=== PATIENT | female | born 1940 | race Caucasian/White ===

== ENCOUNTER 2017-02-09 15:23 | Inpatient (IN) | payer OTHER ==
[~2017-02-09] VITALS: Ht 162.6 cm; Wt 75.0 kg
[2017-02-09] MEDS ORDERED: ALUMINUM/MAGNESIUM SUSP 30 ML UDC PO STA (15:43)
[2017-02-09] MEDS ORDERED: BIOT1CAP4 PO (15:49)
[2017-02-09 15:52] LABS: BASO % 0.2 %; BASO ABS # 0.01 K/uL (0-0.2); COMPLETE YES; EOS % 0.9 %; HEMATOCRIT 36.9 % (37-47); IG% 0.3 %; LYMPH % 29.4 %; LYMPH ABS # 1.87 K/uL (1.2-3.4); MEAN CELL VOLUME 85.6 fL (80-100); MEAN CORPUSCULAR HEMOGLOBIN 28.3 pg (25-34); MEAN CORPUSCULAR HGB CONC 33.1 g/dl (32-36); MONO % 11.1 %; NEUT % 58.1 %; PLATELET COUNT 249 K/uL (130-400); RED BLOOD COUNT 4.31 M/uL (4.2-5.4); WHITE BLOOD COUNT 6.37 K/uL (4.8-10.8)
--- NOTE | 2017-02-09 15:59 | DIAGNOSTIC IMAGING REPORT ---
SINGLE VIEW CHEST CLINICAL HISTORY: Atypical chest pain. FINDINGS: An AP, portable, upright chest radiograph is obtained. No prior studies are available for comparison at the time of dictation. The examination is degraded by portable technique, motion artifact, and patient rotation. The cardiomediastinal silhouette is unremarkable. There is mild elevation of the right hemidiaphragm with associated right basilar atelectasis. No airspace consolidation or large pleural effusion is identified. No pneumothorax is seen. The skeletal structures are osteopenic. The bony thorax is grossly intact. IMPRESSION: No acute cardiopulmonary abnormality is seen. Electronically signed by: David Schroeder M.D. 02/09/2017 3:58 PM Dictated Date/Time: 02/09/2017 3:56 PM
--- NOTE | 2017-02-09 16:03 | EMERGENCY ROOM VISIT NOTE ---
History Report prepared by Greyson: Kan Bahena Under the Supervision of: Dr. Dagmar Gaspar D.O. First contact with patient: 15:29 Chief Complaint: CHEST PAIN Stated Complaint: CHEST PAIN/ARM NUMBNESS History of Present Illness The patient is a 76 year old female who presents to the Emergency Room with complaints of constant chest pressure beginning three days ago. The patient states three days ago she developed severe chest heaviness, and a severe headache. She reports that her headache has been resolved, and it feels like her chest pressure is going away. The patient notes that she gets short of breath when her chest pressure is present, and exertion increases her shortness of breath. She states that her pressure radiates intermittently to her left arm. The patient reports that it is not as bad as before, and she can still do things with her arm. She notes that lying down intensifies her pain. The patient states that she has been experiencing increased fatigue for the past month. She reports that he has not seen her PCP for her symptoms. The patient notes that two of her brothers, one of her sisters, and her mother of heart disease. She states that she is not currently taking medication. The patient reports that she has a history of GERD, but she has never had these symptoms before. She denies neck pain, back pain, fevers, chills, cough, cold, dizziness, lightheaded, smoking, edema to legs, trouble with her bowel movements , urinary symptoms, blurry vision, double vision, and recent travel. Source of History: patient Onset: three days ago Position: chest Quality: pressure Timing: constant Associated Symptoms: + SOB, + fatigue, No fevers, No chills, No cough, No neck pain, No back pain, No urinary symptoms Note: Associated symptoms: left arm pressure Denies: cold, dizziness, lightheaded, smoking, edema to legs, trouble with her bowel movements, blurry vision, double vision, and recent travel Review of Systems See HPI for pertinent positives & negatives. A total of 10 systems reviewed and were otherwise negative. Past Medical & Surgical Medical Problems: (1) GERD (gastroesophageal reflux disease) Family History Heart disease Social History Smoking Status: Never Smoker Marital Status: single Occupation Status: retired Current/Historical Medications Scheduled Biotin (Biotin), 2,500 MCG PO BID Allergies Coded Allergies: No Known Allergies (Unverified , 02/09/17) Physical Exam Vital Signs Date Time Temp Pulse Resp B/P (MAP) Pulse Ox O2 Delivery O2 Flow Rate FiO2 02/09/17 17:05 75 18 175/89 97 Room Air 02/09/17 16:38 74 18 161/92 95 Room Air 02/09/17 16:06 75 02/09/17 15:25 36.8 86 18 175/69 96 Room Air Physical Exam GENERAL: alert, uncomfortable appearing, well nourished, no distress, non-toxic , mildly diaphoretic. EYE EXAM: normal conjunctiva, PERRL and EOM's grossly intact OROPHARYNX: no exudate, no erythema, lips, buccal mucosa, and tongue normal and mucous membranes are moist NECK: supple, no nuchal rigidity, no adenopathy, non-tender LUNGS: Clear to auscultation. Normal chest wall mechanics. No reproducible chest wall tenderness. HEART: no murmurs, S1 normal and S2 normal ABDOMEN: abdomen soft, non-tender, normo-active bowel sounds, no masses, no rebound or guarding. BACK: Back is symmetrical on inspection and there is no deformity, no midline tenderness, no CVA tenderness. SKIN: no rashes and no bruising UPPER EXTREMITIES: upper extremities are grossly normal. LOWER EXTREMITIES: No pitting edema. NEURO EXAM: Normal sensorium, cranial nerves II-XII grossly intact, normal speech, no gross weakness of arms, no gross weakness of legs. Medical Decision & Procedures ER Provider Diagnostic Interpretation: Radiology results have been interpreted by the radiologist and reviewed by me. SINGLE VIEW CHEST CLINICAL HISTORY: Atypical chest pain. FINDINGS: An AP, portable, upright chest radiograph is obtained. No prior studies are available for comparison at the time of dictation. The examination is degraded by portable technique, motion artifact, and patient rotation. The cardiomediastinal silhouette is unremarkable. There is mild elevation of the right hemidiaphragm with associated right basilar atelectasis. No airspace consolidation or large pleural effusion is identified. No pneumothorax is seen. The skeletal structures are osteopenic. The bony thorax is grossly intact. IMPRESSION: No acute cardiopulmonary abnormality is seen. Electronically signed by: David Schroeder M.D. 02/09/2017 3:58 PM Dictated Date/Time: 02/09/2017 3:56 PM Laboratory Results Test 02/09/17 15:45 Prothrombin Time 9.8 SECONDS (9.0-12.0) Prothromb Time International Ratio 0.9 (0.9-1.1) Total Bilirubin 0.4 mg/dl (0.2-1) Aspartate Amino Transf (AST/SGOT) 27 U/L (15-37) Alanine Aminotransferase (ALT/SGPT) 24 U/L (12-78) Alkaline Phosphatase 81 U/L (45-117) Pro-B-Type Natriuretic Peptide 2221 pg/ml (0-900) Total Protein 7.2 gm/dl (6.4-8.2) Albumin 3.7 gm/dl (3.4-5.0) Globulin 3.5 gm/dl (2.5-4.0) Albumin/Globulin Ratio 1.1 (0.9-2) Laboratory results per my review. Medications Administered Medications (Trade) Dose Ordered Sig/Clifford Route Start Time Stop Time Status Last Admin Dose Admin Al Hydroxide/Mg Hydroxide (Maalox Susp) 30 ml NOW STAT PO 02/09/17 15:43 02/09/17 15:44 DC 02/09/17 15:52 30 ML Nitroglycerin (Nitroglycerin 2% Oint) 1 inch NOW ONCE EXT 02/09/17 16:30 02/09/17 16:31 DC 02/09/17 16:40 1 INCH Aspirin/Aluminum/ Magnesium/Ca Carb (Ascriptin Tab) 325 mg NOW STAT PO 02/09/17 16:29 02/09/17 16:30 DC 02/09/17 17:05 325 MG Heparin Sodium/ Dextrose 1 ea NOW STAT N/A 02/09/17 16:38 02/09/17 16:39 DC 02/09/17 16:56 1 EA Heparin Sodium (Porcine) (Heparin Sq 5000 Unit/0.5ml) 5,000 unit STK-MED ONCE .ROUTE 02/09/17 16:49 02/09/17 16:51 DC 02/09/17 16:55 5,000 UNIT Heparin Sodium/ Dextrose (Heparin 25,000 Unit/500ml D5W) 25,000 unit STK-MED ONCE .ROUTE 02/09/17 16:49 02/09/17 16:51 DC 02/09/17 16:56 25,000 UNIT ECG Indication: chest pain (pressure) Rate (beats per minute): 78 Rhythm: sinus rhythm Findings: no acute ischemic change, no ectopy, other (Normal axis and interval , low voltage) ED Course 1536: The patient was evaluated in room A11B. A complete history and physical exam was performed. 1543: Ordered Maalox Susp 30ml PO 1624: Upon reevaluation, the patient is resting. I discussed the findings and the treatment plan with the patient, especially her elevated troponin. She expresses agreement and understanding. 1629: Ordered Ascription Tab 325mg PO 1630: Ordered Nitroglycerin 1 inch EXT 1633: I spoke with Dr. Gupta of the [facility] Hospitalist Service. The patient will be evaluated for further management. 1638: Ordered Heparin Sodium/Dextrose 1ea N/A 1649: Ordered Heparin Sodium/Dextrose 66228 unit .ROUTE, Heparin Sodium (Porcine ) 5000 unit .ROUTE 1738: I reevaluated the patient, and she is no longer experiencing pain or pressure. She is waiting to go upstairs. Medical Decision Differential diagnoses includes but is not limited to acute coronary syndrome, myocardial infarction, pericarditis, pulmonary embolus, aortic dissection, pneumonia, pneumothorax, musculoskeletal, shingles, esophageal. Pt with sx concerning for ACS, and despite reporting improvement on arrival here , pt with risk factors and family hx and found to have elevated troponin. Pt given asa, nitro, heparin and discussed with hospitalist for additional evaluation. Doubt over CHF, doubt elevated trop due to BENJIE/CKD, doubt infectious etiology. No STEMI on EKG, likely NSTEMI. Doubt dissection, pe, tamponade, effusion. VS stable otherwise. Chest pressure resolved with nitro paste. Medication Reconcilliation Current Medication List: was personally reviewed by me Blood Pressure Screening Patient's blood pressure: Elevated blood pressure Monitored by hospitalist Consults Time Called: 162 Consulting Physician: Dr. Gupta, [facility] Hospitalist Returned Call: [address] Gupta of the [facility] Hospitalist Service. The patient will be evaluated for further management. Impression Primary Impression: NSTEMI (non-ST elevated myocardial infarction) Additional Impressions: Chest pain Elevated brain natriuretic peptide (BNP) level Renal insufficiency Critical Care I have personally spent 35 minutes of critical care time in the direct management of this patient. This includes bedside care, interpretation of diagnostic studies, and testing, discussion with consultants, patient, and family members, and other required patient management activities. This 35 minutes is in excess of all separately billable procedures. Scribe Attestation The scribe's documentation has been prepared under my direction and personally reviewed by me in its entirety. I confirm that the note above accurately reflects all work, treatment, procedures, and medical decision making performed by me. Departure Information Dispostion Being Evaluated By Hospitalist Referrals No Doctor, Assigned (PCP) Patient Instructions My [facility] Problem Qualifiers Additional Impressions: Chest pain Chest pain type: unspecified Qualified Codes: R07.9 - Chest pain, unspecified
[2017-02-09 16:06] LABS: INR 0.9 (0.9-1.1); PROTHROMBIN TIME (PATIENT) 9.8 SECONDS (9.0-12.0)
[2017-02-09 16:08] LABS: BUN/CREATININE RATIO 19.3 (10-20); CALCIUM 9.4 mg/dl (8.5-10.1); CREATININE 1.3 mg/dl (0.60-1.20); POTASSIUM 3.9 mmol/L (3.5-5.1)
[2017-02-09 16:20] LABS: ALB/GLOB RATIO 1.1 (0.9-2)
[2017-02-09] MEDS ORDERED: ASPIRIN/ALUM/MAGNES/CAL CARB 325 MG TAB PO STA (16:29)
[2017-02-09] MEDS ORDERED: NITROGLYCERIN OINT 2% 1GM PACKET EXT ONE (16:30)
[2017-02-09] MEDS ORDERED: HEPARIN 25000 UNIT/500 ML D5W ONE (16:49)
[2017-02-09] MEDS ORDERED: HEPARIN SOD 5000 UNIT/0.5 ML CARP ONE (16:49)
[2017-02-09] MEDS ORDERED: ONDANSETRON INJ 2 MG/ML 2 ML VIAL IV PRN (17:15)
[2017-02-09] MEDS ORDERED: MAGNESIUM HYDROXIDE SUSP 30 ML UDC PO PRN (17:15)
[2017-02-09] MEDS ORDERED: NITROGLYCERIN 0.4 MG SL PER TAB CHARGE SL PRN (17:15)
[2017-02-09] MEDS ORDERED: POLYETHYLENE (MIRALAX) 17 GM PACK PO PRN (17:15)
[2017-02-09] MEDS ORDERED: ALUMINUM/MAGNESIUM/SIMETH (MAALOX MAX) 30 ML UDC PO PRN (17:15)
[2017-02-09] MEDS ORDERED: ACETAMINOPHEN 325 MG TAB PO PRN (17:15)
[2017-02-09] MEDS ORDERED: MoRPHine SULFATE 2 MG/ML CARP IV PRN (17:15)
--- NOTE | 2017-02-09 17:33 | History and Physical ---
History & Physical Date & Time of Service: Feb 09, 2017 at 17:14 Chief Complaint: Chest Pain/Arm Numbness Primary Care Physician: No Doctor, Assigned History of Present Illness Source: patient, clinic records, hospital records This is a 76 y/o female with a history of GERD and cataracts who presented to the ED on 02/09 with chest pain. The patient states that she first developed severe 10/10 chest pressure in the middle of her chest about 3 days ago. She denies any associated shortness of breath, dizziness, lightheadedness, nausea or vomiting. The chest pain became less and less severe over the last few days , and the patient currently rates her pain a 1/10. The patient denies any recent increase in activity and states that exertion does not make the pain worse. She did not take anything at home for the pain. She states that it the pain was worse when laying down, and she has been sleeping upright. The patient does have associated intermittent numbness/tingling going down her left arm, which prompted her to be evaluated in the ED. The patient denies any numbness currently. The patient denies any significant past medical history and states she does not take any medications. She had a normal stress test about 15 years ago. She denies any previous cardiac caths. She does admit to a strong cardiac family history. The patient denies fevers, chills, sweats, palpitations, claudication, cough, wheezing, shortness of breath, nausea, vomiting, abdominal pain, dysuria, hematuria, urinary retention, paralysis, and weakness. Past Medical/Surgical History Medical Problems: (1) GERD (gastroesophageal reflux disease) Status: Chronic Cataracts Family History Coronary artery disease Heart disease Myocardial infarction Social History Smoking Status: Never Smoker Smokeless Tobacco Use: No Alcohol Use: none Drug Use: none Marital Status: single Housing status: lives with family (with son) Occupational Status: retired Multi-Drug Resistant Organisms History of MDRO: No Allergies Coded Allergies: No Known Allergies (Unverified , 02/09/17) Home Medications Scheduled Biotin (Biotin), 2,500 MCG PO BID Review of Systems Constitutional: No fever, No chills, No sweats Eyes: No worsening of vision, No eye pain, No diplopia ENT: No hearing loss, No sore throat, No trouble swallowing Respiratory: No cough, No wheezing, No shortness of breath, No dyspnea on exertion Cardiovascular: + chest pain, No claudication, No palpitations Abdomen: No pain, No nausea, No vomiting Musculoskeletal: No joint pain, No muscle pain, No swelling Genitourinary - Female: No dysuria, No urinary retention, No hematuria Neurologic: + numbness/tingling (intermittent left arm), No paralysis, No weakness Integumentary: No rash, No itch, No color change Physical Exam Vital Signs Date Time Temp Pulse Resp B/P (MAP) Pulse Ox O2 Delivery O2 Flow Rate FiO2 02/09/17 17:05 75 18 175/89 97 Room Air 02/09/17 16:38 74 18 161/92 95 Room Air 02/09/17 16:06 75 02/09/17 15:25 36.8 86 18 175/69 96 Room Air General appearance: Well-developed, well-nourished, no apparent distress Head: Normocephalic, atraumatic Eyes: Normal inspection, PERRL, EOMI ENT: Normal ENT inspection, hearing grossly normal, pharynx normal Neck: Supple, no JVD, trachea midline Respiratory/Chest: +Middle of chest TTP. Lungs clear to auscultation, normal breath sounds, no respiratory distress Cardiovascular: Regular rate & rhythm, no gallop, no murmur Abdomen/GI: Normal bowel sounds, non-tender, soft Extremities/Musculoskeletal: Normal inspection, no calf tenderness, no pedal edema Neurological/Psych: Alert, normal mood/affect, oriented x 3 Skin: Normal color, warm/dry, no rash Diagnostics Laboratory Results Results Past 24 Hours Test 02/09/17 15:45 Range/Units White Blood Count 6.37 4.8-10.8 K/uL Red Blood Count 4.31 4.2-5.4 M/uL Hemoglobin 12.2 12.0-16.0 g/dL Hematocrit 36.9 37-47 % Mean Corpuscular Volume 85.6 80-100 fL Mean Corpuscular Hemoglobin 28.3 25-34 pg Mean Corpuscular Hemoglobin Concent 33.1 32-36 g/dl Platelet Count 249 130-400 K/uL Mean Platelet Volume 10.0 7.4-10.4 fL Neutrophils (%) (Auto) 58.1 % Lymphocytes (%) (Auto) 29.4 % Monocytes (%) (Auto) 11.1 % Eosinophils (%) (Auto) 0.9 % Basophils (%) (Auto) 0.2 % Neutrophils # (Auto) 3.70 1.4-6.5 K/uL Lymphocytes # (Auto) 1.87 1.2-3.4 K/uL Monocytes # (Auto) 0.71 0.11-0.59 K/uL Eosinophils # (Auto) 0.06 0-0.5 K/uL Basophils # (Auto) 0.01 0-0.2 K/uL RDW Standard Deviation 42.6 36.4-46.3 fL RDW Coefficient of Variation 13.6 11.5-14.5 % Immature Granulocyte % (Auto) 0.3 % Immature Granulocyte # (Auto) 0.02 0.00-0.02 K/uL Prothrombin Time 9.8 9.0-12.0 SECONDS Prothromb Time International Ratio 0.9 0.9-1.1 Activated Partial Thromboplast Time 25.8 21.0-31.0 SECONDS Partial Thromboplastin Ratio 1.0 Sodium Level 141 136-145 mmol/L Potassium Level 3.9 3.5-5.1 mmol/L Chloride Level 108 98-107 mmol/L Carbon Dioxide Level 27 21-32 mmol/L Anion Gap 6.0 3-11 mmol/L Blood Urea Nitrogen 25 7-18 mg/dl Creatinine 1.30 0.60-1.20 mg/dl Est Creatinine Clear Calc Drug Dose 36.6 ml/min Estimated GFR () 46.5 Estimated GFR (Non- 40.1 BUN/Creatinine Ratio 19.3 10-20 Random Glucose 102 70-99 mg/dl Calcium Level 9.4 8.5-10.1 mg/dl Total Bilirubin 0.4 0.2-1 mg/dl Aspartate Amino Transf (AST/SGOT) 27 15-37 U/L Alanine Aminotransferase (ALT/SGPT) 24 12-78 U/L Alkaline Phosphatase 81 45-117 U/L Troponin I 2.010 0-0.045 ng/ml Pro-B-Type Natriuretic Peptide 2221 0-900 pg/ml Total Protein 7.2 6.4-8.2 gm/dl Albumin 3.7 3.4-5.0 gm/dl Globulin 3.5 2.5-4.0 gm/dl Albumin/Globulin Ratio 1.1 0.9-2 Diagnostic Radiology Reviewed the following studies and agree with interpretation as follows: Patient Name: JILLIAN ANGELA Unit Number: [id number] Dictated: 02/09/171555 Transcribed: 02/09/171555 EV Printed Date/Time: [~ rep prt dt]/[~ rep prt tm] [~ rep ct labl] - [~ rep ct ivnm] [facility] [place] [address] Dictated: 02/09/171555 Transcribed: 02/09/171555 EV Printed Date/Time: [~ rep prt dt]/[~ rep prt tm] [~ rep ct labl] - [~ rep ct ivnm] Patient: JILLIAN ANGELA Address1: [facility] [address] [facility] Rec: [id number] Address2: Acct ID: [id number] [facility] Zip: [place] [address] Date: 1940 Sex: F Room/Bed: Ref Phy: No Doctor, Assigned SC: CHENG Att Phy: Report #: [id number] Marissa Phy: No Doctor, Assigned Test: CXR1P Admit Phy: Chemic Mangler: DAYANNA Interpreting Phy: David Schroeder M.D. Diagnosis: CHEST PAIN/ARM NUMBNESS Ordering Phy: Dagmar Gaspar DO Service Date: 02/09/17 Admit Date: 02/09/17 MNE: [id number] CONF: DICTATED BY: David Schroeder M.D.]] CC: No Doctor, Assigned Dagmar Gaspar DO Endcc: [~ rep ct add3]] SINGLE VIEW CHEST CLINICAL HISTORY: Atypical chest pain. FINDINGS: An AP, portable, upright chest radiograph is obtained. No prior studies are available for comparison at the time of dictation. The examination is degraded by portable technique, motion artifact, and patient rotation. The cardiomediastinal silhouette is unremarkable. There is mild elevation of the right hemidiaphragm with associated right basilar atelectasis. No airspace consolidation or large pleural effusion is identified. No pneumothorax is seen. The skeletal structures are osteopenic. The bony thorax is grossly intact. IMPRESSION: No acute cardiopulmonary abnormality is seen. Electronically signed by: David Schroeder M.D. 02/09/2017 3:58 PM Dictated Date/Time: 02/09/2017 3:56 PM The status of this report is Signed. Draft = Not yet reviewed or approved by Radiologist. Signed = Reviewed and approved by Radiologist. <AttendingPhy></AttendingPhy> <FamilyPhy>No Doctor, Assigned</FamilyPhy> < PrimaryPhy>No Doctor, Assigned</PrimaryPhy> <UnitNumber>[id number]</UnitNumber> <VisitNumber>[id number]</VisitNumber> <PatientName>JILLIAN ANGELA</PatientName > <DateOfBirth>1940</DateOfBirth> <Location>[facility]</Location> <ServiceDate> 02/09/17</ServiceDate> <MNE>ESINDI</MNE> <OrderingPhy>Phedanni Dagmar S DO</ OrderingPhy> <OrderingPhyMNE>f rep ord dr torres</OrderingPhyMNE> <DictatingPhyMNE> f rep dict dr torres</DictatingPhyMNE> <CCListMNE>f rep ct mne</CCListMNE> < AdmittingPhyMNE>f pt admit dr torres</AdmittingPhyMNE> <AttendingPhyMNE>f pt attend dr torres</AttendingPhyMNE> <ConsultingPhyMNE>f pt consult dr torres</ConsultingPhyMNE> <FamilyPhyMNE>f pt fam dr torres</FamilyPhyMNE> <OtherPhyMNE>f pt other dr torres</OtherPhyMNE> < PrimaryPhyMNE>f pt prim care dr torres</PrimaryPhyMNE> <ReferringPhyMNE>f pt referring dr torres</ReferringPhyMNE> EKG Reviewed EKG and agree with interpretation as follows: 78 bpm, sinus rhythm with PACs Impression Assessment and Plan 76 y/o female with a history of GERD and cataracts who presented to the ED on with chest pain x 3 days. Pt arrived to ED afebrile, VSS. Troponin elevated at 2.01. EKG shows no ST elevations or ischemic changes. CXR shows no acute disease. Pt received ASA 325 mg and nitro paste in ED, and was started on heparin drip standard with bolus. NSTEMI -Admit to telemetry -Cardiology consulted, appreciate recs -Continue heparin drip -ASA 81 mg PO qd -Atorvastatin 80 mg PO qd -Nitro 0.4 mg SL prn chest pain -Morphine 2 mg q30m prn CP -Trend cardiac enzymes q8h x 2 more sets or until troponin peaks -NPO after midnight for possible cardiac cath or stress echo -Lipid panel and HgbA1c tomorrow morning -EKG q am and prn worsening chest pain BENJIE -Creatinine 1.3 on admission. Unknown baseline, but last creatinine in hospital records was 0.94 in 2013 -NSS at 100 cc/hr -Continue to monitor GI prophylaxis -Maalox Max 15 mL PO q4h prn dyspepsia -Milk of magnesia 30 mL PO q6h prn constipation -Miralax 17 gm PO qd prn constipation -Zofran 4 mg IV q6h prn nausea DVT prophylaxis -Heparin drip -ZAN nick and SCDs Code Status -Level V, DO NOT RESUSCITATE I agree with PA assessment and plan and have seen and examined pt myself Resting comfortably in bed VSS labs reviewed chest pain reproducible on palpation trop elevated, cont to trend EKG NSR will like need ECHO Strong fam hx of coronary disease Cardiology consulted Level of Care Telemetry Resuscitation Status DO NOT RESUSCITATE VTE Prophylaxis VTE Risk Assessment Done? Y/N: Yes Risk Level: Moderate Given or contraindicated: Other Anticoagulation (heparin drip), T.E.D. Stockings, SCD's
[2017-02-09 18:05] VITALS: BP 146/96; PULSE 73; TEMP 37; Ht 162.6 cm; Wt 75.0 kg
[2017-02-09] MEDS: SODIUM CHLORIDE 0.9% 1000ML 1,000 ML IV SCH (18:22)
[2017-02-09] MEDS ORDERED: HEPARIN 25,000 UNIT/500ML D5W 500 ML IV PRN (18:45)
[2017-02-09 20:00] VITALS: BP 143/78; PULSE 77; TEMP 36.7; O2SAT 93
[2017-02-09 20:01] VITALS: O2SAT 93
[2017-02-09 23:45] LABS: PARTIAL THROMBOPLASTIN RATIO 3.3
[2017-02-10] VITALS (17 sets, daily range): BP systolic 107–156; BP diastolic 64–98; PULSE 65–82; TEMP 36.3–37.1; O2SAT 92–98
[2017-02-10 00:52] LABS: CKMB/CK RATIO 4.1 (0-3.0)
[2017-02-10] MEDS: SODIUM CHLORIDE 0.9% 1000ML 1,000 ML IV SCH (04:01)
[2017-02-10 06:44] LABS: HEMATOCRIT 33.8 % (37-47); MEAN CELL VOLUME 85.4 fL (80-100); MEAN CORPUSCULAR HGB CONC 32.8 g/dl (32-36); PLATELET COUNT 202 K/uL (130-400); RED BLOOD COUNT 3.96 M/uL (4.2-5.4); WHITE BLOOD COUNT 6.61 K/uL (4.8-10.8)
[2017-02-10 07:08] LABS: ESTIMATED AVERAGE GLUCOSE 120 mg/dl; HA1C FLAG Normal (Normal)
[2017-02-10 07:11] LABS: PARTIAL THROMBOPLASTIN RATIO 2.5
[2017-02-10 07:22] LABS: BUN/CREATININE RATIO 20.6 (10-20); CALCIUM 8.2 mg/dl (8.5-10.1); CREATININE 1.1 mg/dl (0.60-1.20); POTASSIUM 4.4 mmol/L (3.5-5.1)
[2017-02-10 07:25] LABS: CHOLESTEROL/HDL RATIO 3.9
[2017-02-10 08:50] LABS: CKMB/CK RATIO 3.2 (0-3.0)
[2017-02-10] MEDS ORDERED: ASPIRIN 81 MG ECTAB PO SCH (09:00)
--- NOTE | 2017-02-10 09:00 | ECHOCARDIOGRAM REPORT ---
*NOTICE TO RECEIVING REPUBLICAN AGENCY This information is strictly Confidential and protected under [place] law. [place] law prohibits you from making any further disclosure of this information unless further disclosure is expressly permitted by the written consent of the person to whom it pertains or is authorized by law. A general authorization for the release of medical or other information is not sufficient for this purpose. Hospital accepts no responsibility if the information is made available to any other person, INCLUDING THE PATIENT. Interpretation Summary * Name: JILLIAN ANGELA Study Date: 02/10/2017 06:33 AM BP: 107/64 mmHg * Patient Location: C.2T\S\S230\S\2 HR: 69 * : 1940 (M/d/yyyy) Gender: Female Height: 64 in * Age: 76 yrs Ethnicity: [place] Weight: 160 lb * Ordering Physician: Bonny Beasley * Referring Physician: Self, Referred * Performed By: Alba Hernandez [facility] * * Reason For Study: CHEST PAIN * BSA: 1.8 m2 * -- Conclusions -- * Left ventricular systolic function is normal. * Grade I diastolic dysfunction, (abnormal relaxation pattern). * Right ventricular systolic pressure is elevated at 30-40mmHg. Procedure Details * A complete two-dimensional transthoracic echocardiogram was performed (2D, M-mode, Doppler and color flow Doppler). Left Ventricle * The left ventricle is normal in size. * The basal septum is thickened and angulated consistent with sigmoid septum. * There is normal left ventricular wall thickness. * Left ventricular systolic function is normal. * Grade I diastolic dysfunction, (abnormal relaxation pattern). * Ejection Fraction = 55-60%. * The left ventricular wall motion is normal. Right Ventricle * The right ventricle is normal in size and function. Atria * The left atrial size is normal. * Right atrial size is normal. Mitral Valve * The mitral valve is normal in structure and function. * There is no mitral regurgitation noted. Tricuspid Valve * The tricuspid valve anatomy is normal. * There is mild tricuspid regurgitation. * Right ventricular systolic pressure is elevated at 30-40mmHg. Aortic Valve * The aortic valve is normal in structure and function. * The aortic valve is trileaflet. * No hemodynamically significant valvular aortic stenosis. * Trace aortic regurgitation. Great Vessels * The aortic root is normal size. Pericardium/Pleural * There is no pericardial effusion. MMode 2D Measurements and Calculations IVSd 1.1 cm IVSs 1.7 cm LVIDd 4.0 cm LVIDs 2.7 cm LVPWd 1.3 cm LVPWs 1.5 cm IVS/LVPW 0.85 FS 31.0 % EDV(Teich) 68.6 ml ESV(Teich) 28.0 ml EF(Teich) 59.2 % EDV(cubed) 62.4 ml ESV(cubed) 20.5 ml EF(cubed) 67.1 % % IVS thick 57.5 % % LVPW thick 19.4 % LV mass(C)d 159.6 grams LV mass(C)dI 89.7 grams/m\S\2 LV mass(C)s 160.7 grams LV mass(C)sI 90.3 grams/m\S\2 SV(Teich) 40.6 ml SI(Teich) 22.8 ml/m\S\2 SV(cubed) 41.9 ml SI(cubed) 23.5 ml/m\S\2 Ao root diam 2.7 cm Ao root area 5.9 cm\S\2 ACS 1.9 cm LA dimension 3.2 cm LA/Ao 1.2 LVOT diam 2.0 cm LVOT area 3.0 cm\S\2 LVAd ap2 22.3 cm\S\2 LVLd ap2 6.8 cm EDV(MOD-sp2) 59.5 ml EDV(sp2-el) 62.2 ml LVAs ap2 12.8 cm\S\2 LVLs ap2 5.4 cm ESV(MOD-sp2) 25.1 ml ESV(sp2-el) 25.9 ml EF(MOD-sp2) 57.8 % EF(sp2-el) 58.4 % SV(MOD-sp2) 34.4 ml SI(MOD-sp2) 19.3 ml/m\S\2 SV(sp2-el) 36.4 ml SI(sp2-el) 20.4 ml/m\S\2 Doppler Measurements and Calculations MV E max lois 80.9 cm/sec MV A max lois 106.2 cm/sec MV E/A 0.76 MV P1/2t max lois 98.4 cm/sec MV P1/2t 73.2 msec MVA(P1/2t) 3.0 cm\S\2 MV dec slope 393.8 cm/sec\S\2 MV dec time 0.27 sec Ao V2 max 123.6 cm/sec Ao max PG 6.1 mmHg Ao max PG (full) 2.9 mmHg JUDE(V,A) 2.2 cm\S\2 JUDE(V,D) 2.2 cm\S\2 AI max lois 460.2 cm/sec AI max PG 84.7 mmHg AI dec slope 192.1 cm/sec\S\2 AI P1/2t 701.7 msec LV V1 max PG 3.2 mmHg LV V1 max 89.5 cm/sec PA V2 max 87.1 cm/sec PA max PG 3.0 mmHg PI max lois 181.2 cm/sec PI max PG 13.1 mmHg PI dec slope 147.2 cm/sec\S\2 PI P1/2t 360.5 msec TR max lois 273.5 cm/sec
--- NOTE | 2017-02-10 09:56 | Cardiology Consultation ---
Cardiology Consultation Date of Consultation: Feb 10, 2017. Requesting Physician: Dr. Mitchell Attending Physician: Dr. Valdez Reason for Consultation: Chest pain with elevated troponins Pt evaluation today including: conversation w/ patient, physical exam, chart review, lab review History of Present Illness Ms. Alcazar is a 76y/o with hx of GERD and cataracts who presented to the ED on with improving chest pain that started on 02/07 with elevated troponin. Pt reports doing housework when the pain started. Pain was severe, in the middle of her chest, described as pressure-like and associated with pressure like headache and L arm numbness/tingling. Pain did not last the entire day and improved. She did not pass out or have sob. Pt talked to [id number] yesterday who is a nurse and encouraged her to go to the ED instead of waiting for an appointment with a clam shucker even though her symptoms had improved. 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 Pt's work does not involve the use of stairs. She sleeps with one pillow at night and does not wake up short of breath. However, pt does report leg tiredness but not cramping and sob when walking especially when she walks fast. Pt also has extensive family history of heart disease: brother got a stent 3 months ago and mother from a heart attack. ED course: Chest x-ray and EKG obtained. She was given nitro paste and aspirin 325 This AM: She denies having any chest pain, sob, L arm numbness/tingling, n/v, abd pain, or dizziness. Only reports a mild headache (states perhaps from her sinuses since cold air is blowing on her face in the room). Past Medical/Surgical History (1) GERD (gastroesophageal reflux disease) cataracts Family History Coronary artery disease Heart disease Myocardial infarction Social History Smoking Status: Never Smoker History of Alcohol Use: No Review of Systems Constitutional: No fever, No chills Respiratory: No shortness of breath Cardiac: No chest pain, No orthopnea, No PND, No edema Abdomen: No pain, No nausea, No vomiting Neurologic: No numbness/tingling Allergies Coded Allergies: No Known Allergies (Unverified , 02/09/17) Medications Current Inpatient Medications Medications (Trade) Dose Ordered Sig/Clifford Route Start Time Stop Time Status Last Admin Dose Admin Sodium Chloride 1,000 ml @ 100 mls/hr Q10H IV 02/09/17 18:00 03/11/17 17:59 02/10/17 04:01 100 MLS/HR Acetaminophen (Tylenol Tab) 650 mg Q4H PRN PO 02/09/17 17:15 03/11/17 17:14 Al Hydrox/Mg Hydrox/Simethicone (Maalox Max Susp) 15 ml Q4H PRN PO 02/09/17 17:15 03/11/17 17:14 Magnesium Hydroxide (Milk Of Magnesia Susp) 30 ml Q12H PRN PO 02/09/17 17:15 03/11/17 17:14 Ondansetron HCl (Zofran Inj) 4 mg Q6H PRN IV 02/09/17 17:15 03/11/17 17:14 Nitroglycerin (Nitrostat Tab) 0.4 mg UD PRN SL 02/09/17 17:15 03/11/17 17:14 Morphine Sulfate (MoRPHine SULFATE INJ) 2 mg Q30M PRN IV 02/09/17 17:15 02/23/17 17:14 Aspirin (Ecotrin Tab) 81 mg QAM PO 02/10/17 09:00 03/12/17 08:59 Polyethylene (Miralax Powder Packet) 17 gm DAILY PRN PO 02/09/17 17:15 03/11/17 17:14 Atorvastatin Calcium (Lipitor Tab) 80 mg QAM PO 02/10/17 09:00 03/12/17 08:59 Heparin Sodium/ Dextrose 500 ml @ 20 mls/hr Q24H PRN IV 02/09/17 18:45 03/11/17 18:44 02/10/17 00:30 20 MLS/HR Physical Exam Vital Signs Past 12 Hours Date Time Temp Pulse Resp B/P (MAP) Pulse Ox O2 Delivery O2 Flow Rate FiO2 02/10/17 07:47 36.8 69 16 130/72 (91) 92 Room Air 02/10/17 04:00 37.1 69 17 107/64 (78) 93 Room Air 02/10/17 04:00 Room Air 02/10/17 00:09 37.1 68 17 151/79 (103) 95 Room Air 02/10/17 00:00 Room Air Lungs: Respiratory effort: no dyspnea, good air movement Auscultation: breath sounds normal Cardiovascular: Heart Auscultation: RRR, normal S1, normal S2, no murmurs Peripheral Pulses: Radial Pulse: normal on the right Extremities: no edema Neurologic: Cranial Nerves: grossly intact Sensation: grossly intact Data Laboratory Results: Last 24 Hours Test 02/09/17 15:45 02/09/17 23:04 02/10/17 00:09 02/10/17 06:29 White Blood Count 6.37 K/uL 6.61 K/uL Red Blood Count 4.31 M/uL 3.96 M/uL Hemoglobin 12.2 g/dL 11.1 g/dL Hematocrit 36.9 % 33.8 % Mean Corpuscular Volume 85.6 fL 85.4 fL Mean Corpuscular Hemoglobin 28.3 pg 28.0 pg Mean Corpuscular Hemoglobin Concent 33.1 g/dl 32.8 g/dl Platelet Count 249 K/uL 202 K/uL Mean Platelet Volume 10.0 fL 10.0 fL Neutrophils (%) (Auto) 58.1 % Lymphocytes (%) (Auto) 29.4 % Monocytes (%) (Auto) 11.1 % Eosinophils (%) (Auto) 0.9 % Basophils (%) (Auto) 0.2 % Neutrophils # (Auto) 3.70 K/uL Lymphocytes # (Auto) 1.87 K/uL Monocytes # (Auto) 0.71 K/uL Eosinophils # (Auto) 0.06 K/uL Basophils # (Auto) 0.01 K/uL RDW Standard Deviation 42.6 fL 42.4 fL RDW Coefficient of Variation 13.6 % 13.6 % Immature Granulocyte % (Auto) 0.3 % Immature Granulocyte # (Auto) 0.02 K/uL Prothrombin Time 9.8 SECONDS Prothromb Time International Ratio 0.9 Activated Partial Thromboplast Time 25.8 SECONDS 85.0 SECONDS 65.5 SECONDS Partial Thromboplastin Ratio 1.0 3.3 2.5 Sodium Level 141 mmol/L 141 mmol/L Potassium Level 3.9 mmol/L 4.4 mmol/L Chloride Level 108 mmol/L 109 mmol/L Carbon Dioxide Level 27 mmol/L 26 mmol/L Anion Gap 6.0 mmol/L 6.0 mmol/L Blood Urea Nitrogen 25 mg/dl 23 mg/dl Creatinine 1.30 mg/dl 1.10 mg/dl Est Creatinine Clear Calc Drug Dose 36.6 ml/min 43.6 ml/min Estimated GFR () 46.5 56.9 Estimated GFR (Non- 40.1 49.1 BUN/Creatinine Ratio 19.3 20.6 Random Glucose 102 mg/dl 98 mg/dl Calcium Level 9.4 mg/dl 8.2 mg/dl Total Bilirubin 0.4 mg/dl Aspartate Amino Transf (AST/SGOT) 27 U/L Alanine Aminotransferase (ALT/SGPT) 24 U/L Alkaline Phosphatase 81 U/L Troponin I 2.010 ng/ml 1.970 ng/ml Pro-B-Type Natriuretic Peptide 2221 pg/ml Total Protein 7.2 gm/dl Albumin 3.7 gm/dl Globulin 3.5 gm/dl Albumin/Globulin Ratio 1.1 Total Creatine Kinase 104 U/L Creatine Kinase MB 4.3 ng/ml Creatine Kinase MB Ratio 4.1 Estimated Average Glucose 120 mg/dl Hemoglobin A1c 5.8 % Triglycerides Level 92 mg/dl Cholesterol Level 130 mg/dl HDL Cholesterol 33 mg/dl LDL Cholesterol, Calculated 79 mg/dl VLDL Cholesterol, Calculated 18 mg/dl Cholesterol/HDL Ratio 3.9 Test 02/10/17 07:58 Total Creatine Kinase 84 U/L Creatine Kinase MB 2.7 ng/ml Creatine Kinase MB Ratio 3.2 Troponin I 1.460 ng/ml Imaging: Chest x-ray revealed mildly elevated right hemidiaphragm without acute cardiopulmonary disease EKG: Normal sinus rhythm without evidence of old infarct or significant ST or T -wave changes Telemetry reviewed: Normal sinus rhythm Assessment & Plan Ms. Alcazar is a 76y/o with hx of GERD and cataracts who presented to the ED on with improving chest pain that started on 02/07 with elevated troponin. Given elevated and now downtrending troponins, it is likely that she had an ischemic myocardial injury from her chest pain on Wednesday which would need to be further evaluated with a cardiac catheterization to assess for CAD/unstable plagues to prevent further ischemic events. -CXR: no significant findings -EKG: sinus arrhythmia with no ST elevation or evidence of old infarcts -ECHO: nl LV systolic function, grade I diastolic dysfunction and elevated RV pressure at 30-40mmHg -Troponins elevated at 2.01 at presentation and now downtrending (1.970 -->1.460 ) -CKMD elevated at 4.3 (02/09) -->2.7 (02/10) with normal CK of 104 and 84 -ProBNP elevated at 2221 -Normal metabolic parameters and Cr of 1.1 Discussed with patient risks/benefits of doing a cardiac catheterization and pt consented to cath this AM with Dr. Cabrales. Attending note: Patient is a 76-year-old woman without known coronary disease who experienced an episode of severe chest discomfort associated with a headache several days ago. This also involve some symptoms of the left arm. The symptoms somewhat prolonged in duration but eventually resolved without intervention. She has not had significant recurrence of the symptoms. She generally does not have exertional symptoms. She cannot recall having similar symptoms in the past. When curious symptoms involved worsening of the chest discomfort when lying supine. Objective findings include normal LV systolic function and a normal EKG. She does however have elevations in her cardiac biomarkers. Troponins are elevated with normal CKs. This may be more client care representative of an event that happened several days ago. Competing etiologies would be some form of pericarditis or myocarditis given the positional nature of her symptoms. We discussed several options for evaluation, but based on her description of symptoms and the elevated biomarkers would seem reasonable to proceed with an early invasive strategy. I did describe the risks benefits and alternatives of coronary angiography to the patient. She is familiar with the procedure as several relatives have undergone similar studies and interventions. She signed witnessed consent form of plan on proceeding later today. I have stopped her heparin. Renal function is normal. - Resident Involvement: Resident Care Provided Care Provided: Adult [facility]
--- NOTE | 2017-02-10 10:45 | Hospitalist Progress Note ---
Hospitalist Progress Note Date of Service Feb 10, 2017. (Zulema Sarah CRNP) Subjective Pt evaluation today including: conversation w/ patient, physical exam, chart review, lab review, review of studies, review of inpatient medication list Pain: none Voiding: no voiding problems Ms. Alcazar is symptom free this morning. She is to be taken for a heart catheterization today. Respiratory: No cough, No sputum, No shortness of breath, No dyspnea on exertion Cardiovascular: No chest pain, No edema, No palpitations Abdomen: No pain, No nausea, No vomiting, No diarrhea, No constipation All Other Systems: Reviewed and Negative (Zulema Sarah CRNP) Medications Medications (Trade) Dose Ordered Sig/Clifford Route Start Time Stop Time Status Last Admin Dose Admin Al Hydroxide/Mg Hydroxide (Maalox Susp) 30 ml NOW STAT PO 02/09/17 15:43 02/09/17 15:44 DC 02/09/17 15:52 30 ML Nitroglycerin (Nitroglycerin 2% Oint) 1 inch NOW ONCE EXT 02/09/17 16:30 02/09/17 16:31 DC 02/09/17 16:40 1 INCH Aspirin/Aluminum/ Magnesium/Ca Carb (Ascriptin Tab) 325 mg NOW STAT PO 02/09/17 16:29 02/09/17 16:30 DC 02/09/17 17:05 325 MG Heparin Sodium/ Dextrose 1 ea NOW STAT N/A 02/09/17 16:38 02/09/17 16:39 DC 02/09/17 16:56 1 EA Heparin Sodium (Porcine) (Heparin Sq 5000 Unit/0.5ml) 5,000 unit STK-MED ONCE .ROUTE 02/09/17 16:49 02/09/17 16:51 DC 02/09/17 16:55 5,000 UNIT Heparin Sodium/ Dextrose (Heparin 25,000 Unit/500ml D5W) 25,000 unit STK-MED ONCE .ROUTE 02/09/17 16:49 02/09/17 16:51 DC 02/09/17 16:56 25,000 UNIT Sodium Chloride 1,000 ml @ 100 mls/hr Q10H IV 02/09/17 18:00 03/11/17 17:59 02/10/17 04:01 100 MLS/HR Heparin Sodium/ Dextrose 1 ea Q30M N/A 02/09/17 17:42 02/09/17 18:31 DC 02/09/17 17:42 1 EA Heparin Sodium/ Dextrose 500 ml @ 20 mls/hr Q24H PRN IV 02/09/17 18:45 02/10/17 09:39 DC 02/10/17 00:30 20 MLS/HR Heparin Sodium (Porcine) (Heparin Iv Bolus) 10,000 unit STK-MED ONCE .ROUTE 02/10/17 12:38 02/10/17 12:39 DC 02/10/17 12:38 10,000 UNIT Fentanyl Citrate (Fentanyl Inj) 100 mcg STK-MED ONCE .ROUTE 02/10/17 12:38 02/10/17 12:39 DC 02/10/17 12:38 75 MCG Midazolam HCl (Versed Inj) 2 mg STK-MED ONCE .ROUTE 02/10/17 12:38 02/10/17 12:39 DC 02/10/17 12:38 2 MG Eptifibatide (Integrilin Inj) 40 mg STK-MED ONCE IV 02/10/17 13:25 02/10/17 13:26 DC 02/10/17 13:25 40 MG Eptifibatide (Integrilin Inj) 75 mg STK-MED ONCE IV 02/10/17 13:25 02/10/17 13:26 DC 02/10/17 13:25 75 MG Midazolam HCl (Versed Inj) 2 mg STK-MED ONCE .ROUTE 02/10/17 14:03 02/10/17 14:04 DC 02/10/17 14:03 2 MG (Zulema Sarah, SAUL) Objective Vital Signs Date Time Temp Pulse Resp B/P (MAP) Pulse Ox O2 Delivery O2 Flow Rate FiO2 02/10/17 07:47 36.8 69 16 130/72 (91) 92 Room Air 02/10/17 04:00 37.1 69 17 107/64 (78) 93 Room Air 02/10/17 04:00 Room Air 02/10/17 00:09 37.1 68 17 151/79 (103) 95 Room Air 02/10/17 00:00 Room Air 02/09/17 20:01 93 Room Air 02/09/17 20:00 36.7 77 16 143/78 (99) 93 02/09/17 18:05 37.0 73 18 146/96 Room Air 02/09/17 17:30 71 18 168/96 96 Room Air 02/09/17 17:05 75 18 175/89 97 Room Air 02/09/17 16:38 74 18 161/92 95 Room Air 02/09/17 16:06 75 02/09/17 15:25 36.8 86 18 175/69 96 Room Air (Zulema Sarah CRNP) Physical Exam General Appearance: WD/WN, no apparent distress Eyes: normal inspection Respiratory/Chest: chest non-tender, lungs clear, + crackles (faint, bilateral bases) Cardiovascular: regular rate, rhythm, no edema, no gallop, no murmur Abdomen: normal bowel sounds, non tender, soft Neurologic/Psychiatric: alert, normal mood/affect, oriented x 3 Skin: normal color, warm/dry (Zulema Sarah, SAUL) Laboratory Results 02/10/17 06:29 02/10/17 06:29 Test 02/09/17 15:45 02/10/17 06:29 02/10/17 07:58 Immature Granulocyte % (Auto) 0.3 % White Blood Count 6.37 K/uL (4.8-10.8) Red Blood Count 4.31 M/uL (4.2-5.4) 3.96 M/uL (4.2-5.4) Hemoglobin 12.2 g/dL (12.0-16.0) Hematocrit 36.9 % (37-47) Mean Corpuscular Volume 85.6 fL (80-100) 85.4 fL (80-100) Mean Corpuscular Hemoglobin 28.3 pg (25-34) 28.0 pg (25-34) Mean Corpuscular Hemoglobin Concent 33.1 g/dl (32-36) 32.8 g/dl (32-36) Platelet Count 249 K/uL (130-400) Mean Platelet Volume 10.0 fL (7.4-10.4) 10.0 fL (7.4-10.4) Neutrophils (%) (Auto) 58.1 % Lymphocytes (%) (Auto) 29.4 % Monocytes (%) (Auto) 11.1 % Eosinophils (%) (Auto) 0.9 % Basophils (%) (Auto) 0.2 % Neutrophils # (Auto) 3.70 K/uL (1.4-6.5) Lymphocytes # (Auto) 1.87 K/uL (1.2-3.4) Monocytes # (Auto) 0.71 K/uL (0.11-0.59) Eosinophils # (Auto) 0.06 K/uL (0-0.5) Basophils # (Auto) 0.01 K/uL (0-0.2) Immature Granulocyte # (Auto) 0.02 K/uL (0.00-0.02) Prothrombin Time 9.8 SECONDS (9.0-12.0) Prothromb Time International Ratio 0.9 (0.9-1.1) Total Bilirubin 0.4 mg/dl (0.2-1) Aspartate Amino Transf (AST/SGOT) 27 U/L (15-37) Alanine Aminotransferase (ALT/SGPT) 24 U/L (12-78) Alkaline Phosphatase 81 U/L (45-117) Pro-B-Type Natriuretic Peptide 2221 pg/ml (0-900) Total Protein 7.2 gm/dl (6.4-8.2) Albumin 3.7 gm/dl (3.4-5.0) Globulin 3.5 gm/dl (2.5-4.0) Albumin/Globulin Ratio 1.1 (0.9-2) RDW Standard Deviation 42.4 fL (36.4-46.3) RDW Coefficient of Variation 13.6 % (11.5-14.5) Activated Partial Thromboplast Time 65.5 SECONDS (21.0-31.0) Partial Thromboplastin Ratio 2.5 Anion Gap 6.0 mmol/L (3-11) Est Creatinine Clear Calc Drug Dose 43.6 ml/min Estimated GFR () 56.9 Estimated GFR (Non- 49.1 BUN/Creatinine Ratio 20.6 (10-20) Estimated Average Glucose 120 mg/dl Hemoglobin A1c 5.8 % (4.5-5.6) Calcium Level 8.2 mg/dl (8.5-10.1) Triglycerides Level 92 mg/dl (0-150) Cholesterol Level 130 mg/dl (0-200) HDL Cholesterol 33 mg/dl LDL Cholesterol, Calculated 79 mg/dl VLDL Cholesterol, Calculated 18 mg/dl Cholesterol/HDL Ratio 3.9 Total Creatine Kinase 84 U/L (26-192) Creatine Kinase MB 2.7 ng/ml (0.5-3.6) Creatine Kinase MB Ratio 3.2 (0-3.0) Troponin I 1.460 ng/ml (0-0.045) Last 24 Hours Test 02/09/17 15:45 02/09/17 23:04 02/10/17 00:09 02/10/17 06:29 White Blood Count 6.37 K/uL 6.61 K/uL Red Blood Count 4.31 M/uL 3.96 M/uL Hemoglobin 12.2 g/dL 11.1 g/dL Hematocrit 36.9 % 33.8 % Mean Corpuscular Volume 85.6 fL 85.4 fL Mean Corpuscular Hemoglobin 28.3 pg 28.0 pg Mean Corpuscular Hemoglobin Concent 33.1 g/dl 32.8 g/dl Platelet Count 249 K/uL 202 K/uL Mean Platelet Volume 10.0 fL 10.0 fL Neutrophils (%) (Auto) 58.1 % Lymphocytes (%) (Auto) 29.4 % Monocytes (%) (Auto) 11.1 % Eosinophils (%) (Auto) 0.9 % Basophils (%) (Auto) 0.2 % Neutrophils # (Auto) 3.70 K/uL Lymphocytes # (Auto) 1.87 K/uL Monocytes # (Auto) 0.71 K/uL Eosinophils # (Auto) 0.06 K/uL Basophils # (Auto) 0.01 K/uL RDW Standard Deviation 42.6 fL 42.4 fL RDW Coefficient of Variation 13.6 % 13.6 % Immature Granulocyte % (Auto) 0.3 % Immature Granulocyte # (Auto) 0.02 K/uL Prothrombin Time 9.8 SECONDS Prothromb Time International Ratio 0.9 Activated Partial Thromboplast Time 25.8 SECONDS 85.0 SECONDS 65.5 SECONDS Partial Thromboplastin Ratio 1.0 3.3 2.5 Sodium Level 141 mmol/L 141 mmol/L Potassium Level 3.9 mmol/L 4.4 mmol/L Chloride Level 108 mmol/L 109 mmol/L Carbon Dioxide Level 27 mmol/L 26 mmol/L Anion Gap 6.0 mmol/L 6.0 mmol/L Blood Urea Nitrogen 25 mg/dl 23 mg/dl Creatinine 1.30 mg/dl 1.10 mg/dl Est Creatinine Clear Calc Drug Dose 36.6 ml/min 43.6 ml/min Estimated GFR () 46.5 56.9 Estimated GFR (Non- 40.1 49.1 BUN/Creatinine Ratio 19.3 20.6 Random Glucose 102 mg/dl 98 mg/dl Calcium Level 9.4 mg/dl 8.2 mg/dl Total Bilirubin 0.4 mg/dl Aspartate Amino Transf (AST/SGOT) 27 U/L Alanine Aminotransferase (ALT/SGPT) 24 U/L Alkaline Phosphatase 81 U/L Troponin I 2.010 ng/ml 1.970 ng/ml Pro-B-Type Natriuretic Peptide 2221 pg/ml Total Protein 7.2 gm/dl Albumin 3.7 gm/dl Globulin 3.5 gm/dl Albumin/Globulin Ratio 1.1 Total Creatine Kinase 104 U/L Creatine Kinase MB 4.3 ng/ml Creatine Kinase MB Ratio 4.1 Estimated Average Glucose 120 mg/dl Hemoglobin A1c 5.8 % Triglycerides Level 92 mg/dl Cholesterol Level 130 mg/dl HDL Cholesterol 33 mg/dl LDL Cholesterol, Calculated 79 mg/dl VLDL Cholesterol, Calculated 18 mg/dl Cholesterol/HDL Ratio 3.9 Test 02/10/17 07:58 Total Creatine Kinase 84 U/L Creatine Kinase MB 2.7 ng/ml Creatine Kinase MB Ratio 3.2 Troponin I 1.460 ng/ml (Zulema Sarah CRNP) Assessment and Plan Healthy appearing 76 year old woman here for chest pain x 3 days that has since resolved. Chest pain, r/o CAD - Troponin peaked at 1.97. Continue ASA, nitro and morphine prn for chest pain. Cathed 02/[address] Cabrales, drug eluting stent placed in the left circ and placed on integrillin drip. New orders from cardiology for clopidegral, atorvastatin, metoprolol and lisinopril. HgA1c elevation - prediabetic range at 5.8%, daily glucose to monitor for elevations otherwise follow up outpatient. BENJIE - Creatinine is now within normal range, BUN has decreased. Continue NSS @ 100 ml/hr, recheck kidney function tomorrow am. DVT prophylaxis - heparin drip held for now, SCDs. Resuscitation status - DNR (Zulema Sarah CRNP) [employer] Physician Supervision Note: I interviewed and examined the patient. Discussed with Jaquelin Sarah NP and agree with findings and plan as documented in the note. 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
[2017-02-10] MEDS ORDERED: FENTANYL CITRATE INJ 50 MCG/1 ML 2 ML VIAL ONE (12:38)
[2017-02-10] MEDS ORDERED: HEPARIN SOD (PORCINE) 1000 UNIT/ML 10 ML VIAL ONE (12:38)
[2017-02-10] MEDS ORDERED: NiCARDipine HCL INJ 2.5 MG/ML 10 ML AMP ONE (12:38)
[2017-02-10] MEDS ORDERED: MIDAZOLAM HCL 1 MG/ML 2ML VIAL ONE ×2 (12:38→14:03)
[2017-02-10] MEDS ORDERED: NITROGLYCERIN/D5W 100MCG/ML 20ML SYR ONE (12:39)
--- NOTE | 2017-02-10 12:45 | Procedure Note ---
Pre-Mod Sedation Assessment General Date of Moderate Sedation: Feb 10, 2017. Vital Signs: Vital Signs Past 12 Hours Date Time Temp Pulse Resp B/P (MAP) Pulse Ox O2 Delivery O2 Flow Rate FiO2 02/10/17 11:48 36.5 76 16 146/80 94 Room Air 02/10/17 07:47 36.8 69 16 130/72 (91) 92 Room Air 02/10/17 04:00 37.1 69 17 107/64 (78) 93 Room Air 02/10/17 04:00 Room Air Review Cardiovascular: regular rate, rhythm, no edema, no gallop, no JVD, no murmur, normal peripheral pulses Abdomen: normal bowel sounds, non tender, soft, no organomegaly, no pulsatile mass Lungs: lungs clear Pre-Sedation Airway Assessment Oral Cavity: Dentures Able to Visualize Vocal Cords: No Short Thick Neck: No Hx of Sleep Apnea: No Smoking Status: Never Smoker Mallampati Classification: Class III ASA Classification: Class II Procedure Planning Contraindications-for Mod Sed: None Yes Notes The planned sedation has been discussed with the patient and consent obtained. I have identified the patient, determined the appropriateness of sedation and have assessed the patient immediately prior to the procedure. All medicine(s) and interventions are by my order.
[2017-02-10] MEDS ORDERED: EPTIFIBATIDE 0.75 MG/ML 75MG VIAL IV ONE (13:25)
[2017-02-10] MEDS ORDERED: EPTIFIBATIDE 2 MG/ML 10 ML VIAL IV ONE (13:25)
[2017-02-10] MEDS ORDERED: CLOPIDOGREL BISULFATE 300 MG TAB PO ONE (14:26)
--- NOTE | 2017-02-10 14:49 | Cardiac Catheterization ---
Procedure Note Procedure Date Feb 10, 2017. Pre-Procedure Diagnosis Non STEMI AUC Score 8 for diagnostic cardiac catheterization,9 for revascularization. Post-Procedure Diagnosis Severe CAD, Successful PCI, Elevated Intracardiac Pressures (LVEDP 14 mm Hg) Procedure(s) Performed Coronary Angiography, Left Heart Cath, PTCA, Drug Eluting Stent Focus Puller Dr. Cabrales Remote Sensing Advisor(s) Santosh HollidayRTR Estimated Blood Loss 40 ml Medication(s) Clopidogrel (60 mg p.o. post PCI), Fentanyl, Heparin, Integrilin, Nicardipine ( Intra-arterial and intracoronary), Versed, Lidocaine 1% Summary of Findings Clinical indications: Non ST elevation myocardial infarction. Electrocardiogram without diagnostic changes of myocardial ischemia. Echocardiogram with normal LV systolic function and wall motion. Peak troponin I 2.010. CAD risk factors include: family history of coronary artery disease, low HDL of 33. The LDL was 79, total cholesterol 130, and triglycerides 92. Catheterization site: 6 [place] slender glide sheath right radial artery. Diagnostic catheter: 5 [place] brachial 3.5 diagnostic catheter. This catheter was used to perform coronary angiography and left heart catheterization. Interventional equipment and protocol: 5 [place] EBU 3.5 guide catheter, 5 [place] ALR 1-2 guide catheter, Phoenix guidewire, Medtronic Resolute Ty 2.75 x 18 mm drug-eluting stent, Menjivar NC Trek 2.75 x 12 mm balloon dilatation catheter. A Medtronic Legend 1.5 x 10 mm balloon dilatation catheter was used to help advance the 5 [place] EBU guide catheter through the radial artery. Spasm had occurred in the radial artery during exchange of the diagnostic catheter 40 guide catheter. Initially it was attempted to use a 6 [place] EBU 3.5 guide catheter. Resistance was met in advancing this catheter. This was consistent with radial artery spasm. Resistance was also met with attempts at advancing the 5 [place] EBU 3.5 catheter. With use of the 1.5 mm balloon inflated in the distal guide catheter with half of the balloon outside of the catheter the guide catheter was easily advanced into the subclavian artery. This was all performed over the Phoenix guide wire. The coronary guidewire and balloon dilatation catheter were then removed and the standard J-tip guidewire was inserted. Most of the interventional procedure was performed using the 5 [place] EBU 3.5 guide catheter. When the noncompliant balloon was being advanced over the guidewire guidewire position was lost in the left circumflex. The guide catheter became disengaged. Multiple attempts were made at reengagement of the left main coronary artery with the EBU 3.5 catheter. These attempts were unsuccessful. The ALR 1-2 guide catheter was then used to recannulate the left main. Post stent deployment noncompliant balloon inflations were performed using this guide catheter. Initially with the intervention intravenous heparin and Integrilin were administered prior to stent deployment. Therapeutic activated clotting time documented. The stent was deployed in a direct fashion to the mid left circumflex at a pressure of 10 atmospheres for duration of 30 seconds. Follow-up angiography was performed with the stent delivery balloon kept in place. A 2nd balloon inflation was then performed with the stent delivery balloon to a pressure of 12 atmospheres for duration of 25 seconds. Post stent deployment noncompliant balloon inflations were performed with the 2.75 x 12 mm noncompliant balloon. Two inflations to maximum pressure of 15 atmospheres and maximum duration of 15 seconds were performed. Follow-up angiography was then performed from orthogonal projections with guidewire in place and then guidewire withdrawn. The patient was hemodynamically and electrically stable throughout the procedure. She had no anginal-type complaints during or following intervention. No cardiac or vascular complaints. Hemostasis: Terumo TR band. Complications: None. Findings: Fluoroscopy revealed mild coronary calcifications. Right dominant circulation. Large caliber left main giving rise to medium caliber left anterior descending left circumflex coronary arteries. Proximal LAD with 10 and then 30% stenoses. The proximal LAD gave rise to a small caliber 1st diagonal artery which had an ostial 70% stenosis. The early mid LAD had a 30% stenosis where gave rise to a long small caliber 2nd diagonal artery. The 2nd diagonal had an ostial 50% stenosis. The distal LAD was tortuous. The LAD wrapped around the apex of the heart as a very small caliber vessel. The proximal left circumflex had a 10% stenosis and then gave rise to a long small caliber 1st marginal artery which had an ostial 50% stenosis. After the 1st marginal there is a 30% stenosis. The mid circumflex had a 90% eccentric stenosis. The mid circumflex gave rise to a very small caliber 2nd marginal artery. This was a short vessel. The distal circumflex gave rise to a long small caliber 3rd marginal artery. The 3rd marginal had a 10% proximal and 10% mid segment stenoses. Following stent deployment in the mid left circumflex and post stent deployment noncompliant balloon inflations the residual stenosis at the stent site was 0%. There is a step-up and step-down prior to and distal to the stent respectively. No dissection, thrombus, perforation, or distal embolic event. JULIET 3 flow in the circumflex in all of its branches. The right coronary was a medium caliber vessel. Ostial 30% stenosis. 30% mid stenosis. 20% distal stenosis. The RCA gave rise to a long small caliber acute marginal artery which had an ostial 80-90% stenosis. The distal RCA gave rise to small caliber posterior descending and posterolateral arteries. These vessels had no obstructive disease. Plan: The patient will remain on intravenous Integrilin for 18 hours. She was given a loading dose of oral clopidogrel 600 mg post PCI. She should remain on dual antiplatelet therapy for 1 year. Aspirin therapy indefinitely. She will also be treated with statin, beta-hellen, and MIKE-inhibitor therapy. Post Integrilin CBC ordered. Post PCI electrocardiogram ordered. Post PCI metabolic profile ordered. Hemodynamics Rest Ao: 142/68/99 mm Hg Final Ao: 164/83/119 mm Hg LV: 152/14 mm Hg Recommendations PCI without planned CABG Specimens None Radiation Exposure (mGy) 3323 Contrast (mls) 220 ml Visipaque Fluids (cc crystalloids) 190 Anesthesia IV Versed,fentanyl. Start time 12:52 p.m.. End 2:27 p.m. Procedural Complication(s) None Disposition PCU ACC Data Cardiac Status Clinical evaluation leading to the procedure CAD Presntation: Non STEMI Anginal Classification: CCS IV Heart Failure: No Cardiogenic Shock w/in 24Hrs: No Cardiac Arrest w/in 24Hrs: No Imaging studies past 6 months: Yes Stress studies past 6 months: No Standard Exercise Stress Test: No Stress Echocardiogram: No Stress Testing w/SPECT MPI: No Cardiac CTA: No Coronary Anatomy Dominant: Right Left Main (% Stenosis): Normal LAD (% Stenosis): Proximal (10,30), Mid (30) D1 (% Stenosis): Ostial (70) D2 (% Stenosis): Ostial (50) Circumflex (% Stenosis): Proximal (10,30), Mid (90) OM1 (% Stenosis): Ostial (50) OM2 (% Stenosis): Normal OM3 (% Stenosis): Proximal (10), Mid (10) RCA (% Stenosis): Ostial (30), Mid, Distal (20) R PDA (% Stenosis): Normal R PL1 (% Stenosis): Normal AM (% Stenosis): Ostial Left Ventricular Angiography EF (%): NA Diagnostic Physician's Name: Luis Cabrales M.D. Status: Elective Closure Device Percutaneous Entry Location: Radial Closure Device: Radial Band Recommendations: PCI without planned CABG PCI Indication: PCI for high risk Non-STEMI Lesion Segment Name: Mid left Cx Culprit Artery: Yes Stenosis Prior to Rx (%): 90 Chronic Total Occlusion: No IVUS: No FFR: No Pre-Procedure JULIET Flow: 3 Previously Treated Lesion: No Lesion Complexity: Non-High/Non-C Lesion Length (mm): 13 Thrombus Present: No Bifurcation Lesion: No Guidewire Across Lesion: Yes Guidewire: Stenosis Post-Procedure (%): 0 Post-Procedure JULIET Flow: 3 Device(s) Deployed: Yes Type of Device(s): Medtronic Resolute Ty 2.75 X 18 mm BOOGIE. Intraprocedure Events Significant Dissection: No Perforation: No
--- NOTE | 2017-02-10 14:57 | Procedure Note ---
Post-Mod Sedation Assessment General Date of Moderate Sedation Feb 10, 2017. Vital Signs: Vital Signs Past 12 Hours Date Time Temp Pulse Resp B/P (MAP) Pulse Ox O2 Delivery O2 Flow Rate FiO2 02/10/17 14:27 73 16 148/81 (103) 96 Room Air 02/10/17 11:48 36.5 76 16 146/80 94 Room Air 02/10/17 07:47 36.8 69 16 130/72 (91) 92 Room Air 02/10/17 04:00 37.1 69 17 107/64 (78) 93 Room Air 02/10/17 04:00 Room Air Review - Discharge Criteria Vital Signs Stable: Yes Alert/Oriented/Conversant: Yes Returned to Baseline Mental St: Yes Nausea Absent/Minimal: Yes Pain/Discomfort/Absent/Minimal: Yes Normal/Baseline Respirations: Yes Active Bleeding?: No Pt Received D/C Instructions: N/A Prescriptions Given: None Specific Proced. D/C Criteria Distal Pulses Present (Cardiac: Yes Groin site assessed-Card Cath: N/A Voided Prior To Discharge: N/A Discharged Patients Adult Escort/Transportation: N/A
[2017-02-10] MEDS ORDERED: SODIUM CHLORIDE 0.9% 1000ML 1,000 ML IV SCH (15:00)
[2017-02-10] MEDS ORDERED: EPTIFIBATIDE BOLUS / DRIP IV ONE (15:00)
[2017-02-10] MEDS ORDERED: ATROPINE SULFATE 0.1 MG/ML 5ML SYR IV PRN (15:00)
[2017-02-10] MEDS ORDERED: ONDANSETRON INJ 2 MG/ML 2 ML VIAL IV PRN (15:00)
[2017-02-10] MEDS ORDERED: ACETAMINOPHEN 325 MG TAB PO PRN (15:00)
[2017-02-10] MEDS: ATORVASTATIN 40 MG TAB PO SCH (15:12)
[2017-02-10 15:21] LABS: BASO % 0.1 %; BASO ABS # 0.01 K/uL (0-0.2); EOS % 1.7 %; HEMATOCRIT 36.6 % (37-47); IG% 0.4 %; LYMPH % 26.6 %; LYMPH ABS # 1.98 K/uL (1.2-3.4); MEAN CELL VOLUME 86.3 fL (80-100); MEAN CORPUSCULAR HEMOGLOBIN 28.8 pg (25-34); MEAN PLATELET VOLUME 10.2 fL (7.4-10.4); MONO % 5.9 %; NEUT % 65.3 %; PLATELET COUNT 223 K/uL (130-400); RED BLOOD COUNT 4.24 M/uL (4.2-5.4); WHITE BLOOD COUNT 7.44 K/uL (4.8-10.8)
[2017-02-10] MEDS ORDERED: EPTIFIBATIDE INJ 75 MG PREMIXED IV SCH (15:30)
[2017-02-10 15:43] LABS: COMPLETE YES; MEAN CORPUSCULAR HGB CONC 33.3 g/dl (32-36)
[2017-02-10] MEDS: METOPROLOL TARTRATE 25 MG TAB PO SCH (20:09)
[2017-02-11 03:38] VITALS: BP 118/75; PULSE 60; TEMP 37.3; O2SAT 94
[2017-02-11 06:16] LABS: COMPLETE YES; EOS % 0.4 %; HEMATOCRIT 34.2 % (37-47); IG% 0.3 %; LYMPH % 21.4 %; LYMPH ABS # 1.43 K/uL (1.2-3.4); MEAN CELL VOLUME 86.4 fL (80-100); MEAN CORPUSCULAR HEMOGLOBIN 27.5 pg (25-34); MEAN CORPUSCULAR HGB CONC 31.9 g/dl (32-36); MEAN PLATELET VOLUME 10.3 fL (7.4-10.4); MONO % 8.7 %; NEUT % 69.2 %; PLATELET COUNT 240 K/uL (130-400); RED BLOOD COUNT 3.96 M/uL (4.2-5.4); WHITE BLOOD COUNT 6.69 K/uL (4.8-10.8)
[2017-02-11 06:31] LABS: BUN/CREATININE RATIO 20.1 (10-20); CALCIUM 8.2 mg/dl (8.5-10.1)
[2017-02-11 07:58] VITALS: BP 103/48; PULSE 59; TEMP 37.1; O2SAT 95
[2017-02-11] MEDS ORDERED: Integrelin infusion --> STOP ORDER ONE (08:00)
[2017-02-11] MEDS: ATORVASTATIN 40 MG TAB PO SCH (08:24)
[2017-02-11] MEDS: METOPROLOL TARTRATE 25 MG TAB PO SCH (08:24)
[2017-02-11] MEDS ORDERED: LISINOPRIL 5 MG TAB PO SCH (09:00)
[2017-02-11] MEDS ORDERED: ASPIRIN 81 MG ECTAB PO SCH (09:00)
[2017-02-11] MEDS ORDERED: CLOPIDOGREL BISULFATE 75 MG TAB PO SCH (09:00)
--- NOTE | 2017-02-11 09:14 | Discharge Instructions ---
Discharge Instructions Date of Service Feb 11, 2017. Admission Reason for Admission: Nstemi Discharge Discharge Diagnosis / Problem: Non ST elevation myocardial infarction Discharge Goals Goal(s): Decrease discomfort, Improve function, Therapeutic intervention Activity Recommendations Activity Limitations: resume your previous activity . Instructions / Follow-Up Instructions / Follow-Up ACTIVITY RECOMMENDATIONS: Excess manipulation of the wrist should be avoided for the next 24-48 hours. * No lifting over 2 pounds (approximately a 1/2 gallon of milk) with the utilized arm for 24 hours. * No strenuous activity such as bowling or tennis for 3 days. * Keep the site of the procedure covered with a bandage for 24 hours. *You may shower the day after the procedure. Do not take a tub bath or submerge the puncture site in water for the next 3 days. *Do not operate any motorized equipment for 3 days. SPECIAL CARE INSTRUCTIONS: The site may be slightly bruised and sore following your procedure. Should any of the following occur, contact the Dr. who performed your procedure. 1. Redness/inflammation, swelling, chills, or fever, or colored drainage at procedure site within 3-7 days after your procedure. 2. Coldness, discoloration, ongoing numbness, severe pain, or swelling. Expect mild tingling of hand and tenderness at the puncture site for up to three days. If this persists beyond three days, or other symptoms develop, notify the Dr. who performed your procedure. BLEEDING: If the procedure site on your wrist begins to bleed, do not panic 1. Place 1 or 2 fingers firmly just slightly above the insertion site to stop the bleeding. You may be able to feel your pulse as you hold pressure. 2. Lift your finger after 5 minutes to see if the bleeding has stopped. 3. Once the bleeding has stopped, gently wipe the wrist area clean with a bandage. * If the bleeding from your wrist does not stop after 10 minutes, or if there is a large amount of bleeding or spurting, call 911 (do not drive yourself to the hospital). SKIN IRRITATION: * You may experience some redness and/or swelling in the area where radiation was administered. If any skin irritation occurs, please contact your family physician. FOLLOW UP VISIT: Keep any scheduled doctor appointments. Home Care: * Take your medications exactly as directed. Don't skip doses. * Remember that recovery after a heart attack takes time. Plan to rest for at lease 4-8 weeks while you recover. Then return to normal activity when your doctor says it's okay. * Ask your doctor about joining a heart rehabilitation program. * Tell your doctor if you are feeling depressed. Feelings of sadness are common after a heart attack, but it is important that you speak to someone if you are feeling overwhelmed by these feelings. * If you are having chest pain, call 911 for an ambulance. Do NOT drive yourself to the hospital. * Ask your family members to learn CPR. * Learn to take your own blood pressure and pulse. Keep a record of your results. Ask your doctor when you should seek emergency medical attention. He or she will tell you which blood pressure reading is dangerous. Lifestyle Changes: * Maintain a healthy weight. Get help to lose any extra pounds. * Cut back on salt. * Limit canned, dried, packaged, and fast foods. * Don't add salt to your food. * Season foods with herbs instead of salt when you cook. * Break the smoking habit. Enroll in a stop-smoking program to improve your chances of success. * Limit fatty foods. * Ask your doctor about having your lipid levels checked regularly. * Build up your activity according to your doctor's recommendation. * Ask your doctor when it's okay to resume sexual activity. * Try to manage stress. Follow Up: It is important for you to keep your follow up appointments with your medical provider. Current Hospital Diet Patient's current hospital diet: AHA Diet (Heart Healthy) Discharge Diet Recommended Diet: AHA Diet (Heart Healthy) Procedures Procedures Performed: cardiac catheterization Pending Studies Studies pending at discharge: no Laboratory Results Hemoglobin A1c Test 02/10/17 06:29 Range/Units Estimated Average Glucose 120 mg/dl Hemoglobin A1c 5.8 H 4.5-5.6 % Lipid Panel Test 02/10/17 06:29 Range/Units Triglycerides Level 92 0-150 mg/dl Cholesterol Level 130 0-200 mg/dl HDL Cholesterol 33 mg/dl Cholesterol/HDL Ratio 3.9 LDL Cholesterol, Calculated 79 mg/dl Medical Emergencies . Who to Call and When: Medical Emergencies: If at any time you feel your situation is an emergency, please call 911 immediately. Call 911 immediately or go to your nearest Emergency Room if you experience any of the following: Warning Signs and Symptoms of a Heart Attack * Chest pain that is not relieved by medication * Shortness of breath . Non-Emergent Contact Non-Emergency issues call your: Primary Care Provider Call Non-Emergent contact if: temperature is above 100.5, your pain is worsening, your pain is unusual for you, your pain is concerning you, wound has increased drainage, wound has increased redness, wound has increased pain, you have any medication questions . Past History Medical & Surgical History: (1) NSTEMI (non-ST elevated myocardial infarction) (2) CAD (coronary artery disease) (3) Chest pain . "Provider Documentation" section prepared by Zulema Sarah. . AMI Core Measures Reason no ASA as I/P: Treatment provided - N/A Reason no ASA at D/C: Treatment provided - N/A Reason no statin as I/P: Treatment provided - N/A Reason no statin at D/C: Treatment provided - N/A VTE Core Measure Inpt VTE Proph given/why not?: Other Anticoagulation (heparin drip), T.E.D. Stockings, SCD's
[2017-02-11] MEDS ORDERED: PLV75 PO (09:22)
[2017-02-11] MEDS ORDERED: LPR25 PO (09:22)
[2017-02-11] MEDS ORDERED: NTRSLP4 SL (09:22)
[2017-02-11] MEDS ORDERED: LPT40 PO (09:22)
[2017-02-11] MEDS ORDERED: ASPEC81 PO (09:22)
[2017-02-11] MEDS ORDERED: LSN5 PO (09:22)
[2017-02-11 10:38] VITALS: BP 103/48; PULSE 59; TEMP 37.1; O2SAT 95
--- NOTE | 2017-02-12 08:18 | Discharge Summary ---
Discharge Summary Date of Service Feb 12, 2017. Discharge Summary Admission Date: Feb 09, 2017 at 17:13 Discharge Date: Feb 11, 2017 Discharge Disposition: Home Principal Diagnosis: NSTEMI Procedures: CXR showing no acute abnormality Left Heart PCI through right radial artery with drug eluting stent to the left circ ACC Data Cardiac Status Clinical evaluation leading to the procedure CAD Presntation: Non STEMI Anginal Classification: CCS IV Heart Failure: No Cardiogenic Shock w/in 24Hrs: No Cardiac Arrest w/in 24Hrs: No Imaging studies past 6 months: Yes Stress studies past 6 months: No Standard Exercise Stress Test: No Stress Echocardiogram: No Stress Testing w/SPECT MPI: No Cardiac CTA: No Coronary Anatomy Dominant: Right Left Main (% Stenosis): Normal LAD (% Stenosis): Proximal (10,30), Mid (30) D1 (% Stenosis): Ostial (70) D2 (% Stenosis): Ostial (50) Circumflex (% Stenosis): Proximal (10,30), Mid (90) OM1 (% Stenosis): Ostial (50) OM2 (% Stenosis): Normal OM3 (% Stenosis): Proximal (10), Mid (10) RCA (% Stenosis): Ostial (30), Mid, Distal (20) R PDA (% Stenosis): Normal R PL1 (% Stenosis): Normal AM (% Stenosis): Ostial Left Ventricular Angiography EF (%): NA Diagnostic Physician's Name: Luis Cabrales M.D. Status: Elective Closure Device Percutaneous Entry Location: Radial Closure Device: Radial Band Recommendations: PCI without planned CABG PCI Indication: PCI for high risk Non-STEMI Lesion Segment Name: Mid left Cx Culprit Artery: Yes Stenosis Prior to Rx (%): 90 Chronic Total Occlusion: No IVUS: No FFR: No Pre-Procedure JULIET Flow: 3 Previously Treated Lesion: No Lesion Complexity: Non-High/Non-C Lesion Length (mm): 13 Thrombus Present: No Bifurcation Lesion: No Guidewire Across Lesion: Yes Guidewire: Stenosis Post-Procedure (%): 0 Post-Procedure JULIET Flow: 3 Device(s) Deployed: Yes Type of Device(s): Medtronic Resolute Ty 2.75 X 18 mm BOOGIE. Consultations: Dr. Cabrales for cardiology Medication Reconciliation New Medications: Aspirin (Aspirin EC Low Dose) 81 Mg Ectab 81 MG PO QAM for 30 Days, #30 DOSE Atorvastatin (Atorvastatin Calcium) 40 Mg Tab 80 MG PO QAM for 30 Days, #60 TAB Clopidogrel Bisulfate (Clopidogrel) 75 Mg Tab 75 MG PO QAM for 30 Days, #30 TAB Lisinopril (Lisinopril) 5 Mg Tab 5 MG PO QAM for 30 Days, #30 TAB Metoprolol Tartrate (Lopressor) 25 Mg Tab 25 MG PO Q12 for 30 Days, #60 TAB Nitroglycerin (Nitrostat) 0.4 Mg/1 Tab Subl 0.4 MG SL UD PRN for Chest Pain for 30 Days, #1 BTL Continued Medications: Biotin (Biotin) 2,500 Mcg Cap 2500 MCG PO BID Discharge Exam Review of Systems: Constitutional: No problem reported Respiratory: No cough, No shortness of breath, No dyspnea on exertion Cardiovascular: No chest pain, No palpitations Abdomen: No pain, No nausea, No vomiting Physical Exam: General Appearance: WD/WN, no apparent distress Eyes: normal inspection Respiratory/Chest: chest non-tender, lungs clear, normal breath sounds, no respiratory distress, no accessory muscle use Cardiovascular: regular rate, rhythm, no edema, no gallop, no JVD, no murmur , normal peripheral pulses Abdomen / GI: normal bowel sounds, non tender, soft Neurologic/Psychiatric: alert, normal mood/affect, normal reflexes Skin: normal color, warm/dry Hospital Course Healthy appearing 76 year old woman here for chest pain x 3 days that has since resolved. Chest pain, r/o CAD - Troponin peaked at 1.97. Continue ASA, nitro and morphine prn for chest pain. Cathed 02/[address] Cabrales, drug eluting stent placed in the left circ and placed on integrillin drip. New orders from cardiology for clopidegral, atorvastatin, metoprolol and lisinopril. HgA1c elevation - prediabetic range at 5.8%, daily glucose to monitor for elevations otherwise follow up outpatient. BENJIE - Creatinine is now within normal range, BUN has decreased after fluid resuscitation. DVT prophylaxis - heparin drip held for catheterization, SCDs. Resuscitation status - DNR Total Time Spent: Less than 30 minutes This includes examination of the patient, discharge planning, medication reconciliation, and communication with other providers. Discharge Instructions Please refer to the electronic Patient Visit Report (Discharge Instructions) for additional information.
[2017-03-02] MEDS ORDERED: MULT-610 PO (11:38)
[2017-03-02] MEDS ORDERED: METO25TA56 PO (11:38)
== END 2017-02-11 11:30 | disposition home or self-care (01) | DRG 247 ==
LOC: C.EDB 15:25 → C.2T 17:13 → ENRESERV 17:31
PROVIDERS: ADMIT Hospitalist; ATTEND Internal Medicine
PROC: 4A023N7 Measurement of Cardiac Sampling and Pressure, Left Heart, Percutaneous Approach (ICD-10-PCS; principal; 2017-02-10 12:43)
PROC: 027034Z Dilation of Coronary Artery, One Artery with Drug-eluting Intraluminal Device, Percutaneous Approach (ICD-10-PCS; principal; 2017-02-10 12:43)
PROC: B2151ZZ Fluoroscopy of Left Heart using Low Osmolar Contrast (ICD-10-PCS; principal; 2017-02-10 12:43)
PROC: B2111ZZ Fluoroscopy of Multiple Coronary Arteries using Low Osmolar Contrast (ICD-10-PCS; principal; 2017-02-10 12:43)
DX: I21.4 Non-ST elevation (NSTEMI) myocardial infarction (principal); N17.9 Acute kidney failure, unspecified; I25.10 Atherosclerotic heart disease of native coronary artery without angina pectoris; R73.03 Prediabetes; R51 Headache; Z66 Do not resuscitate; Z82.49 Family history of ischemic heart disease and other diseases of the circulatory system

== ENCOUNTER → 2017-03-17 | Day surgery (SDC) | payer OTHER ==
[2017-03-02 11:39] VITALS: Ht 161.3 cm; Wt 70.9 kg
[~2017-03-17] VITALS: Ht 161.3 cm; Wt 70.9 kg
[~2017-03-17] MED LIST: 500ML BSS 0.3ML EPI 1:1000PF IRRIG ONE; ACETAMINOPHEN 325 MG TAB PO PRN; AMVISC PLUS 0.8ML SYRINGE INT OCU ONE; ASPCH81X PO; ASPEC81 PO; ATOR-24 PO; ATROPINE SULFATE 0.1 MG/ML 5ML SYR IV PRN; AcetaZOLAMIDE 250 MG TAB PO SCH; BETAXOLOL HCL 0.25% OP SUSP PER DROP CHARGE OPL SCH; BIOT1CAP4 PO; BRIMONIDINE TART 0.2% OP SOLN PER DROP CHARGE ONE; BSS FLUSH ONE; ENDOCOAT 0.85ML SYRINGE INT OCU ONE; EpHEDrine SULFATE INJ 50 MG/ML AMP IV PRN; EpINEphrine INJ 1MG/ML AMP 1 MG/ML AMP ONE; LACTATED RINGER'S 1000ML 500 ML IV SCH; LIDOCAINE 4% OP SOLN DROP CHARGE ONE; LIDOCAINE 4% OP SOLN DROP CHARGE OPL SCH; LIDOCAINE HCL 1% MPF 2 ML VIAL ONE; LISI-729 PO; LPT40 PO; LSN5 PO; METO25TA56 PO; MIDAZOLAM HCL 1 MG/ML 2ML VIAL ONE; MIX: 4ML BSS 1ML EPI 1:1000 PF INSTIL ONE; MOXIFLOXACIN OPH SOLN PER DROP CHARGE ONE; MULT-610 PO; NTRGSL/4 UT; NTRSLP4 SL; NURSING VERBAL MED ORDER ONE; OCUCOAT 1 ML SOLN IO ONE; PLAVIX75 PO; PLV75 PO; POVIDONE-IODINE OP SOLN 30 ML BTL ONE; PROPARACAINE 0.5% OP SOLN PER DROP CHARGE OPL ONE; PROPARACAINE 0.5% OP SOLN PER DROP CHARGE OPL SCH; TOBRAMYCIN/DEXAMETHASONE OPH OINT PER APPLN CHARGE ONE
--- NOTE | 2017-03-17 11:11 | History & Physical Bridge - SC ---
H&P Re-Evaluation Bridge Note: I have examined the patient, reviewed the History & Physical and in the interval since the performance of the History & Physical I have noted the following changes of clinical significance: No changes noted
[2017-03-17] MEDS: PHENYLEPHRINE HCL 2.5% OP SOLN PER DROP CHARGE OPL SCH ×2 (12:19→12:24)
[2017-03-17] MEDS: TROPICAMIDE 1% OP SOLN PER DROP CHARGE OPL SCH ×2 (12:20→12:25)
[2017-03-17] MEDS: CYCLOPENTOLATE HCL 1% OP SOLN PER DROP CHARGE OPL SCH ×2 (12:21→12:26)
[2017-03-17] MEDS: MOXIFLOXACIN OPH SOLN PER DROP CHARGE OPL SCH ×2 (12:22→12:32)
--- NOTE | 2017-03-17 13:18 | Discharge Instructions-SurgCtr ---
Discharge Instructions Date of Service Mar 17, 2017. Visit Reason for Visit: Left Cataract Discharge Discharge Diagnosis / Problem: lens implant left eye Discharge Goals Goal(s): Improve function Activity Recommendations Activity Limitations: resume your previous activity Lifting Limitations: no more than 10 pounds Exercise/Sports Limitations: gradually increase as tolerated May Resume Sexual Activity: when tolerated Shower/Bathe: tomorrow Driving or Machine Use: resume 1 day after discharge Anesthesia . Post Anesthesia Instructions: If you have had General Anesthesia or IV Sedation: * Do not drive today. * Resume driving when surgeon permits. * Do not make important decisions or sign legal documents today. * Call surgeon for: 1. Temperature elevations greater than 101 degrees F. 2. Uncontrollable pain. 3. Excessive bleeding. 4. Persistent nausea and vomiting. 5. Medication intolerance (nausea, vomiting or rash). * For nausea and vomiting use only clear liquids such as: tea, soda, bouillon until nausea subsides, then gradually increase diet as tolerated. * If you have any concerns or questions, call your surgeon's office. If physician is unavailable and it is an emergency, call 911 or go to the nearest emergency room. . Instructions / Follow-Up Instructions / Follow-Up ACTIVITY RECOMMENDATIONS: * Light activities. * Mild irritation and blurred vision are common for the first few days. * You may walk outside, read, watch television. * Redness around the white part of the eye is common. MEDICATIONS: Resume previous medications unless instructed otherwise by your surgeon. * Take white Diamox (Acetazolamide) tablet at 4 pm today. Start all eye drops at 4 pm today: * Eye drops (today and tomorrow): Prednisone - one drop in operative eye every 3 hours while awake Ofloxacin - one drop in operative eye every 3 hours while awake SPECIAL CARE INSTRUCTIONS: * Tape plastic shield over eye to sleep at night. Call your doctor at with any concerns or problems. FOLLOW UP VISIT: Follow-up with Dr Gutierrez at [place] office as scheduled. Diet Recommendations Home Diet: no limitations Procedures Procedures Performed: cataract extraction with lens implant Pending Studies Studies pending at discharge: no Medical Emergencies . Who to Call and When: Medical Emergencies: If at any time you feel your situation is an emergency, please call 911 immediately. . Non-Emergent Contact Non-Emergency issues call your: Forest[employer] Laborer Call Non-Emergent contact if: your pain is not controlled [phone] . . "Provider Documentation" section prepared by Lucio Gutierrez. .
--- NOTE | 2017-03-17 13:20 | [facility] Operative Report ---
Operative Report Date of Service Mar 17, 2017. Operative Report 1. PREOPERATIVE DIAGNOSIS: Senile nuclear cataract, left eye. 2. POSTOPERATIVE DIAGNOSIS: Senile nuclear cataract, left eye. 3. PROCEDURE: Phacoemulsification of left cataract with posterior chamber lens implant, type [employer]ch [employer] Lomb, model MI60L, power +26.5 diopters. ANESTHESIA: Local standby. SURGEON: Dr. Gutierrez. COMPLICATIONS: None. OPERATING TIME: 10 minutes. 4. OPERATION AND FINDINGS: DESCRIPTION OF PROCEDURE: The left pupil was dilated. The anesthetic was administered using a topical technique. The left eye was prepped and draped. A speculum was placed. A clear corneal incision was formed. The chamber was filled with Amvisc Plus and Endocoat. Epinephrine solution was used. A paracentesis was placed. A capsulorrhexis was performed. The nucleus was hydrodissected. A dense lens was removed with phacoemulsification. Time was 8.81 seconds. The aspiration unit was used to remove the cortex. The capsule was filled with Amvisc Plus. The lens implant was folded and placed into the capsule. The incision was hydrated. The Amvisc was aspirated. The wound was secure. The chamber was deep. The pupil was round. Brimonidine, TobraDex ointment and Vigamox solution were placed. The speculum was removed. The patient was returned to the Recovery Room in stable condition. I attest to the content of the Intraoperative Record and any orders documented therein. Any exceptions are noted below. The scribe's documentation has been prepared in my presence, under my direction and personally reviewed by me in its entirety. I confirm that the note above accurately reflects all work, treatment, procedures, and medical decision making performed by me. I personally scribed for Lucio Gutierrez M.D. ([email or web address]) on 03/17/17 at 13:20. Electronically submitted by Shweta Wayne ([email or web address]).
[2017-03-17 13:22] VITALS: TEMP 36.3
--- NOTE | 2017-03-17 13:53 | Anesthesiology Progress Note ---
Anesthesia Post Op Note Date & Time Mar 17, 2017 at 13:53 Vital Signs Pain Intensity: 0 Vital Signs Past 12 Hours Date Time Temp Pulse Resp B/P (MAP) Pulse Ox O2 Delivery O2 Flow Rate FiO2 03/17/17 13:22 36.3 60 16 132/78 (96) 100 Room Air 03/17/17 12:08 36.9 61 20 130/84 (99) 96 Room Air Notes Mental Status: alert / awake / arousable, participated in evaluation Nausea / Vomiting: adequately controlled Pain: adequately controlled Airway Patency, RR, SpO2: stable & adequate BP & HR: stable & adequate Hydration State: stable & adequate Anesthetic Complications: no major complications apparent
[2017-03-17 13:58] VITALS: BP 134/77; PULSE 59; O2SAT 97
== END | disposition home health service (06) ==
LOC: X.SURG 10:41
PROVIDERS: ATTEND Specialist
DX: H25.12 Age-related nuclear cataract, left eye (principal); I25.10 Atherosclerotic heart disease of native coronary artery without angina pectoris; I10 Essential (primary) hypertension; I25.2 Old myocardial infarction; Z79.02 Long term (current) use of antithrombotics/antiplatelets; Z68.27 Body mass index [BMI] 27.0-27.9, adult

== ENCOUNTER → 2017-04-21 | Day surgery (SDC) | payer OTHER ==
[2017-04-01 09:47] VITALS: Ht 161.3 cm; Wt 70.9 kg
[~2017-04-21] VITALS: Ht 161.3 cm; Wt 70.9 kg
[~2017-04-21] MED LIST changes: -ASPEC81 PO; -BETAXOLOL HCL 0.25% OP SUSP PER DROP CHARGE OPL SCH; +BETAXOLOL HCL 0.25% OP SUSP PER DROP CHARGE OPR SCH; -EpINEphrine INJ 1MG/ML AMP 1 MG/ML AMP ONE; -LIDOCAINE 4% OP SOLN DROP CHARGE OPL SCH; +LIDOCAINE 4% OP SOLN DROP CHARGE OPR SCH; -LPT40 PO; -LSN5 PO; -NTRSLP4 SL; -NURSING VERBAL MED ORDER ONE; -PLV75 PO; -PROPARACAINE 0.5% OP SOLN PER DROP CHARGE OPL ONE; -PROPARACAINE 0.5% OP SOLN PER DROP CHARGE OPL SCH; +PROPARACAINE 0.5% OP SOLN PER DROP CHARGE OPR SCH
[2017-04-21] MEDS: PHENYLEPHRINE HCL 2.5% OP SOLN PER DROP CHARGE OPR SCH ×2 (07:20→07:24)
[2017-04-21] MEDS: TROPICAMIDE 1% OP SOLN PER DROP CHARGE OPR SCH ×2 (07:21→07:25)
[2017-04-21] MEDS: CYCLOPENTOLATE HCL 1% OP SOLN PER DROP CHARGE OPR SCH ×2 (07:22→07:26)
[2017-04-21] MEDS: MOXIFLOXACIN OPH SOLN PER DROP CHARGE OPR SCH ×2 (07:23→07:27)
[2017-04-21] MEDS: EpINEphrine INJ 1MG/ML AMP 1 MG/ML AMP ONE ×2 (08:12→08:13)
--- NOTE | 2017-04-21 08:19 | Discharge Instructions-SurgCtr ---
Discharge Instructions Date of Service Apr 21, 2017. Visit Reason for Visit: Right Cataract Discharge Discharge Diagnosis / Problem: lens implant right eye Discharge Goals Goal(s): Improve function Medications Stopped Medications Name(s): Did not take supplements this morning. Activity Recommendations Activity Limitations: resume your previous activity Lifting Limitations: no more than 10 pounds Exercise/Sports Limitations: gradually increase as tolerated May Resume Sexual Activity: when tolerated Shower/Bathe: tomorrow Driving or Machine Use: resume 1 day after discharge Anesthesia . Post Anesthesia Instructions: If you have had General Anesthesia or IV Sedation: * Do not drive today. * Resume driving when surgeon permits. * Do not make important decisions or sign legal documents today. * Call surgeon for: 1. Temperature elevations greater than 101 degrees F. 2. Uncontrollable pain. 3. Excessive bleeding. 4. Persistent nausea and vomiting. 5. Medication intolerance (nausea, vomiting or rash). * For nausea and vomiting use only clear liquids such as: tea, soda, bouillon until nausea subsides, then gradually increase diet as tolerated. * If you have any concerns or questions, call your surgeon's office. If physician is unavailable and it is an emergency, call 911 or go to the nearest emergency room. . Instructions / Follow-Up Instructions / Follow-Up ACTIVITY RECOMMENDATIONS: * Light activities. * Mild irritation and blurred vision are common for the first few days. * You may walk outside, read, watch television. * Redness around the white part of the eye is common. MEDICATIONS: Resume previous medications unless instructed otherwise by your surgeon. * Take white Diamox (Acetazolamide) tablet at 1 pm today. Start all eye drops at 1 pm today: * Eye drops (today and tomorrow): Prednisone - one drop in operative eye every 3 hours while awake Ofloxacin - one drop in operative eye every 3 hours while awake SPECIAL CARE INSTRUCTIONS: * Tape plastic shield over eye to sleep at night. Call your doctor at with any concerns or problems. FOLLOW UP VISIT: Follow-up with Dr Gutierrez at [place] office as scheduled. Diet Recommendations Home Diet: no limitations Procedures Procedures Performed: Right Eye Cataract Phacoemulsification With Intraocular Lens Implant Pending Studies Studies pending at discharge: no Medical Emergencies . Who to Call and When: Medical Emergencies: If at any time you feel your situation is an emergency, please call 911 immediately. . Non-Emergent Contact Non-Emergency issues call your: [employer] Machine Tender Call Non-Emergent contact if: your pain is not controlled [phone] . . "Provider Documentation" section prepared by Lucio Gutierrez. .
--- NOTE | 2017-04-21 08:21 | [facility] Operative Report ---
Operative Report Date of Service Apr 21, 2017. Operative Report 1. PREOPERATIVE DIAGNOSIS: Senile nuclear cataract, right eye. 2. POSTOPERATIVE DIAGNOSIS: Senile nuclear cataract, right eye. 3. PROCEDURE: Phacoemulsification of right cataract with posterior chamber lens implant, type [employer], model MI60L, power +23.0 diopters. ANESTHESIA: Local standby. SURGEON: Dr. Gutierrez. COMPLICATIONS: None. OPERATING TIME: 10 minutes. 4. OPERATION AND FINDINGS: DESCRIPTION OF PROCEDURE: The right pupil was dilated. The anesthetic was administered using a topical technique. The right eye was prepped and draped. A speculum was placed. A clear corneal incision was formed. The chamber was filled with Amvisc Plus and Endocoat. Epinephrine solution was used. A paracentesis was placed. A capsulorrhexis was performed. The nucleus was hydrodissected. The lens was removed with phacoemulsification. Time was 5.08 seconds. The aspiration unit was used to remove the cortex. The capsule was filled with Amvisc Plus. The lens implant was folded and placed into the capsule. The incision was hydrated. The Amvisc was aspirated. The wound was secure. The chamber was deep. The pupil was round. Brimonidine, TobraDex ointment and Vigamox solution were placed. The speculum was removed. The patient was returned to the Recovery Room in stable condition. I attest to the content of the Intraoperative Record and any orders documented therein. Any exceptions are noted below. The scribe's documentation has been prepared in my presence, under my direction and personally reviewed by me in its entirety. I confirm that the note above accurately reflects all work, treatment, procedures, and medical decision making performed by me. I personally scribed for Lucio Gutierrez M.D. ([email or web address]) on 04/21/17 at 08:21. Electronically submitted by Shweta Wayne ([email or web address]).
[2017-04-21 08:35] VITALS: TEMP 36.7
--- NOTE | 2017-04-21 08:55 | Anesthesia Progress Nt - [facility] ---
Anesthesia Post Op Note Date & Time Apr 21, 2017 at 08:55 Vital Signs Pain Intensity: 0 Vital Signs Past 12 Hours Date Time Temp Pulse Resp B/P (MAP) Pulse Ox O2 Delivery O2 Flow Rate FiO2 04/21/17 08:35 60 18 124/99 (107) 04/21/17 07:07 36.9 61 18 123/77 (92) 97 Room Air Notes Mental Status: alert / awake / arousable, participated in evaluation Pt Amnestic to Procedure: Yes Nausea / Vomiting: adequately controlled Pain: adequately controlled Airway Patency, RR, SpO2: stable & adequate BP & HR: stable & adequate Hydration State: stable & adequate Anesthetic Complications: no major complications apparent
[2017-04-21 08:59] VITALS: BP 126/61; PULSE 54; O2SAT 99
== END | disposition home or self-care (01) ==
LOC: X.SURG 06:52
PROVIDERS: ATTEND Specialist
DX: H25.11 Age-related nuclear cataract, right eye (principal); Z96.1 Presence of intraocular lens; I10 Essential (primary) hypertension

== ENCOUNTER → 2017-05-27 | Outpatient (CLI) | payer OTHER ==
[~2017-05-27] MED LIST changes: -500ML BSS 0.3ML EPI 1:1000PF IRRIG ONE; -ACETAMINOPHEN 325 MG TAB PO PRN; -AMVISC PLUS 0.8ML SYRINGE INT OCU ONE; -ATROPINE SULFATE 0.1 MG/ML 5ML SYR IV PRN; -AcetaZOLAMIDE 250 MG TAB PO SCH; -BETAXOLOL HCL 0.25% OP SUSP PER DROP CHARGE OPR SCH; -BRIMONIDINE TART 0.2% OP SOLN PER DROP CHARGE ONE; -BSS FLUSH ONE; -ENDOCOAT 0.85ML SYRINGE INT OCU ONE; -EpHEDrine SULFATE INJ 50 MG/ML AMP IV PRN; -LACTATED RINGER'S 1000ML 500 ML IV SCH; -LIDOCAINE 4% OP SOLN DROP CHARGE ONE; -LIDOCAINE 4% OP SOLN DROP CHARGE OPR SCH; -LIDOCAINE HCL 1% MPF 2 ML VIAL ONE; -MIDAZOLAM HCL 1 MG/ML 2ML VIAL ONE; -MIX: 4ML BSS 1ML EPI 1:1000 PF INSTIL ONE; -MOXIFLOXACIN OPH SOLN PER DROP CHARGE ONE; -OCUCOAT 1 ML SOLN IO ONE; -POVIDONE-IODINE OP SOLN 30 ML BTL ONE; -PROPARACAINE 0.5% OP SOLN PER DROP CHARGE OPR SCH; -TOBRAMYCIN/DEXAMETHASONE OPH OINT PER APPLN CHARGE ONE
[2017-05-27 17:06] LABS: BASO % 0.2 %; BASO ABS # 0.01 K/uL (0-0.2); EOS % 2.9 %; EOS ABS # 0.19 K/uL (0-0.5); HEMATOCRIT 35.2 % (37-47); HEMOGLOBIN 11.4 g/dL (12.0-16.0); IG# 0.01 K/uL (0.00-0.02); LYMPH % 29.5 %; LYMPH ABS # 1.93 K/uL (1.2-3.4); MEAN CELL VOLUME 87.6 fL (80-100); MEAN CORPUSCULAR HEMOGLOBIN 28.4 pg (25-34); MEAN CORPUSCULAR HGB CONC 32.4 g/dl (32-36); MEAN PLATELET VOLUME 10.9 fL (7.4-10.4); MONO % 10.8 %; MONO ABS # 0.71 K/uL (0.11-0.59); NEUT % 56.4 %; PLATELET COUNT 221 K/uL (130-400); RED CELL DISTRIBUTION WIDTH CV 13.6 % (11.5-14.5); RED CELL DISTRIBUTION WIDTH SD 44.3 fL (36.4-46.3); WHITE BLOOD COUNT 6.55 K/uL (4.8-10.8)
[2017-05-27 18:48] LABS: ALBUMIN 3.7 gm/dl (3.4-5.0); ALT/SGPT 96 U/L (12-78); AST/SGOT 65 U/L (15-37); BLOOD UREA NITROGEN 28 mg/dl (7-18); CALCIUM 9.1 mg/dl (8.5-10.1); CARBON DIOXIDE 28 mmol/L (21-32); CREATININE 1.14 mg/dl (0.60-1.20); GLUCOSE 94 mg/dl (70-99); POTASSIUM 4.3 mmol/L (3.5-5.1); SODIUM 140 mmol/L (136-145)
[2017-05-27 18:58] LABS: ALKALINE PHOSPHATASE 94 U/L (45-117); TOTAL PROTEIN 7.5 gm/dl (6.4-8.2)
== END | disposition home or self-care (01) ==
LOC: C.LABBFT 15:31
PROVIDERS: ATTEND Internal Medicine
DX: Z00.00 Encounter for general adult medical examination without abnormal findings (principal); R53.83 Other fatigue; E78.5 Hyperlipidemia, unspecified; F32.9 Major depressive disorder, single episode, unspecified; I21.4 Non-ST elevation (NSTEMI) myocardial infarction

== ENCOUNTER → 2017-08-02 | Outpatient (CLI) | payer OTHER ==
[2017-08-02 17:53] LABS: ALT/SGPT 42 U/L (12-78); AST/SGOT 28 U/L (15-37)
== END | disposition home or self-care (01) ==
LOC: C.LABBFT 15:27
PROVIDERS: ATTEND Internal Medicine
DX: Z00.00 Encounter for general adult medical examination without abnormal findings (principal); R53.83 Other fatigue; E78.5 Hyperlipidemia, unspecified; R79.89 Other specified abnormal findings of blood chemistry; I21.4 Non-ST elevation (NSTEMI) myocardial infarction